=== PATIENT | female | born 1995 | race Caucasian/White ===

== ENCOUNTER 2018-09-30 21:41 | Emergency (ER) ==
[2018-09-30 21:59] VITALS: BP 111/70; TEMP 99.8; BMI 24.9
[2018-09-30] MEDS ORDERED: DILAUDID 1 MG/ML SYRINGE IM STA (22:41)
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
== END 2018-10-01 00:16 | disposition home or self-care (01) ==
LOC: ED 21:41
DX: S00.83XA Contusion of other part of head, initial encounter (principal); S49.92XA Unspecified injury of left shoulder and upper arm, initial encounter; Y04.2XXA Assault by strike against or bumped into by another person, initial encounter
CPT/HCPCS: 96372; 99283

== ENCOUNTER 2019-03-24 16:57 | Outpatient (CLI) | END 2019-03-24 16:58 | disposition home or self-care (01) | LOC: RHC-LAB 16:57 → FCC-LAB 16:58 | PROVIDERS: ATTEND Family Medicine | DX: N30.90 Cystitis, unspecified without hematuria (principal) | CPT/HCPCS: 87086 ==

== ENCOUNTER 2019-03-26 10:32 | Outpatient (CLI) ==
--- NOTE | 2019-03-26 11:07 | US ---
EXAM: Bilateral breast ultrasound. History: Bilateral nipple discharge. Technique: Multiple sonographic images through the bilateral breasts were obtained. Color duplex Do ppler was used to interrogate vascular flow. Findings: No masses, cysts or fluid collections identified. Impression: No sonographic abnormalities. Follow-up with ACR/ACS guidelines. BI-RADS 2, benign
== END 2019-03-26 10:33 | disposition home or self-care (01) ==
LOC: RAD 10:32
PROVIDERS: ATTEND Family Medicine
DX: N64.3 Galactorrhea not associated with childbirth (principal)

== ENCOUNTER 2021-02-08 15:41 | Observation (INO) ==
[2021-02-08 15:59] VITALS: BMI 25.7
--- NOTE | 2021-02-08 16:03 | ED.PDOC ---
General ED Provider: Dr. BRAXTON ABREU Chief Complaint: Bite Stated Complaint: Redness and burning -Lt arm(biceps region) noted to distinct bite velasquez central in area of erythrema. Lt posterior thigh to posterior knee( Popliteal ) Region. Suspected insect or spider bite. Did not feel initial incident but noticed the area once up this AM. Feel fatigued and had severe burning sensation to Lt arm and lt lower extremity Time Seen by Provider: 02/08/21 15:59 Mode of Arrival: Walk-In Information Source: Patient Primary Care Provider: MAEVE MARIE MD Nursing and Triage Documentation Reviewed and Agree: Yes Does patient meet sepsis criteria?: No System Inflammatory Response Syndrome: Not Applicable Sepsis Protocol: For patient's 13 years and over: Temp is 96.8 and below OR 101 and greater Pulse >90 BPM Resp >20/minute Acutely Altered Mental Status Are patient's symptoms suggestive of a new infection, such as: -Pneumonia -Skin, Soft Tissue -Endocarditis -UTI -Bone, Joint Infection -Implantable Device -Acute Abdominal Infection -Wound Infection -Meningitis -Blood Stream Catheter Infection -Unknown Skin Complaint Exam Skin Rash/Itching Complaint/Exam Onset/Duration: Today Symptoms Are: Worse Initial Severity: Mild Current Severity: Severe Location: Lt arm, LT posterior thigh spreading to knee Potential Exposures: Reports Unknown Prior Treatment: 0 Aggravating: Reports None Alleviating: Reports None Associated Signs and Symptoms: Denies Difficulty breathing, Fever and Chills Skin Findings: Present Petechiae (Erythema) and Lesions (Lt arm(central 2 punctate bite velasquez) Differential Diagnoses: Allergic Reaction and Other (Cellulitis, Brown recluse spider bite) Review of Systems Review Of Systems Constitutional: Reports No symptoms Eyes: Reports No symptoms Ears, Nose, Mouth, Throat: Reports No symptoms Respiratory: Reports No symptoms Cardiac: Reports No symptoms GI: Reports No symptoms : Reports No symptoms Musculoskeletal: Reports No symptoms Skin: Reports No symptoms, Change in color and Lesions Neurological: Reports No symptoms Endocrine: Reports No symptoms Hematologic/Lymphatic: Reports No symptoms All Other Systems: Reviewed and Negative [facility] Medical History Anxiety Bipolar affective disorder Depression Migraine Personal history of self-harm Social History Smoking and tobacco status: Never smoker Second hand smoke exposure: No Alcohol intake: never Substance use type: does not use Lady/restorationism: ORTHODOXY Special lady needs: No Agree to transfusion: Yes Adopted: Yes Household members: spouse and children Housing: house Marital status: M Lives independently: No Number of children: 3 Highest education level completed: high school graduate service: No Current occupational status: employed Pets and animals: Yes Sexually active: Yes Do you think of yourself as: straight/heterosexual Current gender identity: female Seatbelt use: always Helmet use: No Water heater temperature set < 120 degrees: Yes Working smoke detector in home: Yes Fire extinguisher in home: Yes Carbon monoxide detector in home: Yes Firearms in home: No Female Reproductive History Menstrual Hx Hysterectomy: No Hx Tubal Ligation: No Physical Exam Physical Exam Appearance: Reports Well-appearing Ill-appearing: Mild Pain Distress: Mild Eyes: Reports ARSLAN, EOMI and Conjunctiva clear ENT: Reports Ears normal, Nose normal and Oropharynx normal Neck: Supple Respiratory: Reports Airway patent, Breath sounds clear, Breath sounds equal and Respirations nonlabored Cardiovascular: Reports RRR, Pulses normal, No rub and No murmur GI/: Reports Soft, Nontender, No masses, Bowel sounds normal and No Organomegaly Musculoskeletal: Reports Normal strength, ROM intact, No edema and No calf tenderness Skin: Reports Warm, Dry, Normal color and Other (Findings as described above) Neurological: Reports Sensation intact, Motor intact, Reflexes intact, Cranial nerves intact, Alert and Oriented Psychiatric: Reports Affect appropriate and Mood appropriate Physician Notification Case Discussed Physician Notified: Dr Marie - will come by and see patient Time of Notification: 16:15 Critical Care Note Critical Care Note Total Critical Care Time (mins): 30 Course Course Hematology/Chemistry: 02/08/21 16:20 02/08/21 16:20 Orders, Labs, Meds: Lab Review 02/08/21 02/08/21 02/08/21 16:20 16:20 16:20 WBC 8.67 RBC 4.66 Hgb 12.7 Hct 37.5 MCV 80.5 L MCH 27.3 MCHC 33.9 RDW Coeff of Toi 13.6 Plt Count 340 Immature Gran % (Auto) 0.3 Neut % (Auto) 72.0 Lymph % (Auto) 22.7 Cuming % (Auto) 4.0 Eos % (Auto) 0.9 Baso % (Auto) 0.1 Neut # (Auto) 6.2 Lymph # (Auto) 2.0 Cuming # (Auto) 0.4 Eos # (Auto) 0.1 Baso # (Auto) 0.0 Immature Gran # (Auto) 0.0 ESR PT INR APTT Sodium 136.6 Potassium 3.72 Chloride 101.2 Carbon Dioxide 27.5 Anion Gap 11.62 BUN 9.6 Creatinine 0.54 L Estimated GFR (MDRD) 135.00 BUN/Creatinine Ratio 17.77 Glucose 113.3 H Lactic Acid Calcium 8.94 Total Bilirubin 0.69 AST 83.1 H ALT 51.8 H Alkaline Phosphatase 87.9 Total Creatine Kinase 51.4 Total Protein 7.57 Albumin 4.31 Globulin 3.26 Albumin/Globulin Ratio 1.32 Procalcitonin Serum , Qual Negative D-Dimer Urine Color Urine Clarity Urine pH Ur Specific [place] Urine Protein Urine Glucose (UA) Urine Ketones Urine Blood Urine Nitrite Urine Bilirubin Urine Urobilinogen Ur Leukocyte Esterase Urine Microscopic RBC Urine Microscopic WBC Ur Squamous Epith Cells Ur Transition Epith Cell Urine Bacteria Adenovirus (PCR) B. pertussis DNA (PCR) B.parapertussis DNA PCR C. pneumoniae DNA (PCR) Coronavirus OC43 (PCR) Coronavirus HKU1 (PCR) Coronavirus 229E (PCR) Coronavirus NL63 (PCR) Human Metapneumovir PCR Influenza Type A (PCR) Influenza B (RT-PCR) M. pneumoniae (PCR) Parainfluenza 1 (PCR) Parainfluenza 2 (PCR) Parainfluenza 3 (PCR) Parainfluenza 4 (PCR) RSV (PCR) Entero/Rhino (PCR) SARS-CoV-2 (PCR) 02/08/21 02/08/21 02/08/21 16:20 16:20 16:20 WBC RBC Hgb Hct MCV MCH MCHC RDW Coeff of Toi Plt Count Immature Gran % (Auto) Neut % (Auto) Lymph % (Auto) Cuming % (Auto) Eos % (Auto) Baso % (Auto) Neut # (Auto) Lymph # (Auto) Cuming # (Auto) Eos # (Auto) Baso # (Auto) Immature Gran # (Auto) ESR PT 10.5 INR 0.99 APTT 28.6 Sodium Potassium Chloride Carbon Dioxide Anion Gap BUN Creatinine Estimated GFR (MDRD) BUN/Creatinine Ratio Glucose Lactic Acid Calcium Total Bilirubin AST ALT Alkaline Phosphatase Total Creatine Kinase Total Protein Albumin Globulin Albumin/Globulin Ratio Procalcitonin < 0.05 Serum , Qual D-Dimer 186.42 Urine Color Urine Clarity Urine pH Ur Specific [place] Urine Protein Urine Glucose (UA) Urine Ketones Urine Blood Urine Nitrite Urine Bilirubin Urine Urobilinogen Ur Leukocyte Esterase Urine Microscopic RBC Urine Microscopic WBC Ur Squamous Epith Cells Ur Transition Epith Cell Urine Bacteria Adenovirus (PCR) B. pertussis DNA (PCR) B.parapertussis DNA PCR C. pneumoniae DNA (PCR) Coronavirus OC43 (PCR) Coronavirus HKU1 (PCR) Coronavirus 229E (PCR) Coronavirus NL63 (PCR) Human Metapneumovir PCR Influenza Type A (PCR) Influenza B (RT-PCR) M. pneumoniae (PCR) Parainfluenza 1 (PCR) Parainfluenza 2 (PCR) Parainfluenza 3 (PCR) Parainfluenza 4 (PCR) RSV (PCR) Entero/Rhino (PCR) SARS-CoV-2 (PCR) 02/08/21 02/08/21 02/08/21 16:20 17:20 17:40 WBC RBC Hgb Hct MCV MCH MCHC RDW Coeff of Toi Plt Count Immature Gran % (Auto) Neut % (Auto) Lymph % (Auto) Cuming % (Auto) Eos % (Auto) Baso % (Auto) Neut # (Auto) Lymph # (Auto) Cuming # (Auto) Eos # (Auto) Baso # (Auto) Immature Gran # (Auto) ESR 13 PT INR APTT Sodium Potassium Chloride Carbon Dioxide Anion Gap BUN Creatinine Estimated GFR (MDRD) BUN/Creatinine Ratio Glucose Lactic Acid Calcium Total Bilirubin AST ALT Alkaline Phosphatase Total Creatine Kinase Total Protein Albumin Globulin Albumin/Globulin Ratio Procalcitonin Serum , Qual D-Dimer Urine Color Yellow Urine Clarity Slightly Urine pH 7.0 Ur Specific [place] 1.020 Urine Protein Negative Urine Glucose (UA) Negative Urine Ketones Negative Urine Blood Trace-intact H Urine Nitrite Negative Urine Bilirubin Negative Urine Urobilinogen 0.2 Ur Leukocyte Esterase Trace H Urine Microscopic RBC 5-10 Urine Microscopic WBC 5-10 Ur Squamous Epith Cells 10-20 Ur Transition Epith Cell 0-2 Urine Bacteria 1+ Adenovirus (PCR) Not detected B. pertussis DNA (PCR) Not detected B.parapertussis DNA PCR Not detected C. pneumoniae DNA (PCR) Not detected Coronavirus OC43 (PCR) Not detected Coronavirus HKU1 (PCR) Not detected Coronavirus 229E (PCR) Not detected Coronavirus NL63 (PCR) Not detected Human Metapneumovir PCR Not detected Influenza Type A (PCR) Not detected Influenza B (RT-PCR) Not detected M. pneumoniae (PCR) Not detected Parainfluenza 1 (PCR) Not detected Parainfluenza 2 (PCR) Not detected Parainfluenza 3 (PCR) Not detected Parainfluenza 4 (PCR) Not detected RSV (PCR) Not detected Entero/Rhino (PCR) Not detected SARS-CoV-2 (PCR) Not detected 02/08/21 18:17 WBC RBC Hgb Hct MCV MCH MCHC RDW Coeff of Toi Plt Count Immature Gran % (Auto) Neut % (Auto) Lymph % (Auto) [place] % (Auto) Eos % (Auto) Baso % (Auto) Neut # (Auto) Lymph # (Auto) [place] # (Auto) Eos # (Auto) Baso # (Auto) Immature Gran # (Auto) ESR PT INR APTT Sodium Potassium Chloride Carbon Dioxide Anion Gap BUN Creatinine Estimated GFR (MDRD) BUN/Creatinine Ratio Glucose Lactic Acid 1.24 Calcium Total Bilirubin AST ALT Alkaline Phosphatase Total Creatine Kinase Total Protein Albumin Globulin Albumin/Globulin Ratio Procalcitonin Serum , Qual D-Dimer Urine Color Urine Clarity Urine pH Ur Specific [place] Urine Protein Urine Glucose (UA) Urine Ketones Urine Blood Urine Nitrite Urine Bilirubin Urine Urobilinogen Ur Leukocyte Esterase Urine Microscopic RBC Urine Microscopic WBC Ur Squamous Epith Cells Ur Transition Epith Cell Urine Bacteria Adenovirus (PCR) B. pertussis DNA (PCR) B.parapertussis DNA PCR C. pneumoniae DNA (PCR) Coronavirus OC43 (PCR) Coronavirus HKU1 (PCR) Coronavirus 229E (PCR) Coronavirus NL63 (PCR) Human Metapneumovir PCR Influenza Type A (PCR) Influenza B (RT-PCR) M. pneumoniae (PCR) Parainfluenza 1 (PCR) Parainfluenza 2 (PCR) Parainfluenza 3 (PCR) Parainfluenza 4 (PCR) RSV (PCR) Entero/Rhino (PCR) SARS-CoV-2 (PCR) Orders Category Date Time Status ADMIT OBSERVATION [PLACE PATIENT OBSERVATION] .TO ADMISSION 02/08/21 17:25 Active MEDSURG (NON-MONITORED BED) EKG-(ED ONLY) Stat CARDIO 02/08/21 17:39 Completed ACTIVITY .Up With Assistance CARE 02/08/21 17:31 Active INTAKE & OUTPUT Q8HR CARE 02/08/21 17:32 Active VITAL SIGNS Q4HR CARE 02/08/21 17:32 Active REGULAR DIET DIETARY 02/08/21 Dinner Ordered IV [ED IV/MEDIPORT/POWERPORT] .ONCE EMERGENCY 02/08/21 16:03 Active ANTI-NEUTROPHIL CYTOPLASMIC AB Stat LAB 02/08/21 16:20 Received BLOOD CULTURE (ED ONLY) Stat LAB 02/08/21 17:41 Received C-REACTIVE PROTEIN Stat LAB 02/08/21 16:20 Received CBC W/ AUTO DIFF DAILY@0600 LAB 02/09/21 06:00 Ordered CBC W/ AUTO DIFF DAILY@0600 LAB 02/10/21 06:00 Ordered CBC W/ AUTO DIFF Stat LAB 02/08/21 16:20 Completed CMP [COMPREHENSIVE METABOLIC PANEL] Stat LAB 02/08/21 16:20 Completed COMPREHENSIVE METABOLIC PANEL DAILY@0600 LAB 02/09/21 06:00 Ordered COMPREHENSIVE METABOLIC PANEL DAILY@0600 LAB 02/10/21 06:00 Ordered CPK [CREATINE KINASE] Stat LAB 02/08/21 16:20 Completed CREATINE KINASE Stat LAB 02/09/21 06:36 Ordered D-DIMER Stat LAB 02/08/21 16:20 Completed ESR Stat LAB 02/08/21 16:20 Completed HCG QUALITATIVE [SERUM ] Stat LAB 02/08/21 16:20 Completed LACTIC ACID Stat LAB 02/08/21 18:17 Completed PARTIAL THROMBOPLASTIN TIME Stat LAB 02/08/21 16:20 Completed PROCALCITONIN Stat LAB 02/08/21 16:20 Completed PT WITH INR DAILY@0600 LAB 02/09/21 06:00 Ordered PT WITH INR DAILY@0600 LAB 02/10/21 06:00 Ordered PT WITH INR Stat LAB 02/08/21 16:20 Completed RESPIRATORY PANEL 2.1 (PCR) Stat LAB 02/08/21 17:20 Completed UA [URINALYSIS C & S IF INDICATED] Stat LAB 02/08/21 17:40 Completed URINE CULTURE Stat LAB 02/08/21 17:40 Received 0.9 % Sodium Chloride [Saline Flush] MEDS 02/08/21 16:03 Active 1 syr IVF PRN PRN Acetaminophen [Tylenol] MEDS 02/08/21 17:36 Active 650 mg PO Q4-6H PRN Ceftriaxone 1 gm Vial [Rocephin 1 gm Vial] MEDS 02/09/21 06:00 Active 1 gm IV Q24H Ceftriaxone/D5w 1 gm Premix [Rocephin 1 gm/50 ml D5w] MEDS 02/08/21 17:29 Discontinued 1 gm in 50 ml IV ONCE Cetirizine HCl [Zyrtec] MEDS 02/08/21 16:10 Discontinued 10 mg PO ONCE STA Diphenhydramine Inj [Benadryl] MEDS 02/08/21 16:06 Discontinued 50 mg IVP ONCE ONE Enoxaparin Sodium [Lovenox] MEDS 02/08/21 17:31 Discontinued 60 mg SUBCUT ONCE ONE Ketorolac Tromethamine [Toradol] MEDS 02/08/21 16:47 Discontinued 30 mg IVP ONCE STA Lidocaine HCl/Pf [Lidocaine HCl 1% Sdv] MEDS 02/08/21 18:37 Discontinued 2.1 ml IM ONCE STA Methylprednisolone Sod Succ/Pf [Solu-Medrol 125 mg] MEDS 02/08/21 16:08 Discontinued 125 mg IVP ONCE STA Methylprednisolone Sod Succ/Pf [Solu-Medrol 125 mg] MEDS 02/08/21 21:00 Active 125 mg IVP Q8HR Morphine Sulfate [Morphine 2 mg/ml Syringe] MEDS 02/08/21 18:36 Active 2 mg IVP Q6H PRN Ondansetron HCl/Pf [Zofran 4 mg/2 ml] MEDS 02/08/21 17:31 Active 4 mg IVP Q6H PRN Vancomycin 1 gm MEDS 02/08/21 17:28 Discontinued 0.9 % Sodium Chloride [Sodium Chloride] 250 ml IV ONCE Vancomycin 1 gm MEDS 02/09/21 06:00 Active 0.9 % Sodium Chloride [Sodium Chloride] 250 ml IV Q12H RESUSCITATION STATUS Routine OTHERS 02/08/21 17:31 Ordered Medications Generic Name Dose Route Start Last Admin Trade Name Freq PRN Reason Stop Dose Admin Acetaminophen 650 mg 02/08/21 17:36 Acetaminophen 325 Mg Tablet PO Q4-6H PRN head ache, temp elevation Ceftriaxone Sodium 1 gm 02/09/21 06:00 Ceftriaxone 1 Gm Vial 1 Gm Vial IV 02/12/21 05:59 Q24H ALYX Vancomycin HCl 1 gm/ Sodium 250 mls @ 250 mls/hr 02/09/21 06:00 Chloride IV 02/12/21 05:59 Q12H ALYX Methylprednisolone Sodium Succinate 125 mg 02/08/21 21:00 Methylprednisolone Sod Succ/Pf 125 Mg/2 Ml Vial IVP Q8HR ALYX Morphine Sulfate 2 mg 02/08/21 18:36 Morphine Sulfate 2 Mg/Ml Syringe IVP Q6H PRN pain Ondansetron HCl 4 mg 02/08/21 17:31 Ondansetron Hcl/Pf 4 Mg/2 Ml Sdv IVP Q6H PRN Nausea / Vomiting Sodium Chloride 1 syr 02/08/21 16:03 02/08/21 16:20 0.9% Sodium Chloride 10 Ml Disp.Syrin IVF 1 syr PRN PRN Administration To flush IV Discontinued Medications Generic Name Dose Route Start Last Admin Trade Name Freq PRN Reason Stop Dose Admin Cetirizine HCl 10 mg 02/08/21 16:10 02/08/21 16:19 Cetirizine Hcl 5 Mg/5 Ml Ud Cup PO 02/08/21 16:11 10 mg ONCE STA Administration Diphenhydramine HCl 50 mg 02/08/21 16:06 02/08/21 16:20 Diphenhydramine Inj 50 Mg/Ml Vial IVP 02/08/21 16:07 50 mg ONCE ONE Administration Enoxaparin Sodium 60 mg 02/08/21 17:31 02/08/21 17:50 Enoxaparin Sodium 60 Mg/0.6 Ml Syr SUBCUT 02/08/21 17:32 60 mg ONCE ONE Administration Vancomycin HCl 1 gm/ Sodium 250 mls @ 250 mls/hr 02/08/21 17:28 02/08/21 18:22 Chloride IV 02/08/21 18:27 250 mls/hr ONCE ONE Administration CEFTRIAXONE/D5W 1 GM PREMIX 1 gm in 50 mls @ 75 mls/hr 02/08/21 17:29 02/08/21 17:42 Rocephin 1 Gm/50 Ml D5w IV 02/08/21 18:08 75 mls/hr ONCE STA Administration Ketorolac Tromethamine 30 mg 02/08/21 16:47 02/08/21 16:51 Ketorolac Tromethamine 30 Mg/Ml Vial IVP 02/08/21 16:48 30 mg ONCE STA Administration Lidocaine HCl 2.1 ml 02/08/21 18:37 Lidocaine Hcl/Pf 1% 5 Ml Vial IM 02/08/21 18:38 ONCE STA Methylprednisolone Sodium Succinate 125 mg 02/08/21 16:08 02/08/21 16:20 Methylprednisolone Sod Succ/Pf 125 Mg/2 Ml Vial IVP 02/08/21 16:09 125 mg ONCE STA Administration Vital Signs: Temp Pulse Resp BP Pulse Ox 02/08/21 18:28 100 H 18 100 02/08/21 18:18 98.7 F 118 H 20 121/82 100 02/08/21 17:15 98.7 F 118 H 20 121/82 100 02/08/21 16:55 107 H 20 02/08/21 15:45 97.8 F 94 H 16 117/83 98 Discharge Plan Discharge Patient Disposition: PLACED OBSERVATION Discharge Problem: Cellulitis, Brown recluse spider bite ED Provider: BRAXTON ABREU Condition: Stable Physician Progress Note: [address] Marie here see patient. Discussed further treatment including admission for observation and treatment including LMWH , IV antibiotics and US in the AM of LT LE
[2021-02-08] MEDS ORDERED: BENADRYL IVP ONE (16:06)
[2021-02-08] MEDS ORDERED: SOLU-MEDROL 125 MG IVP STA (16:08)
[2021-02-08] MEDS ORDERED: ZYRTEC PO STA (16:10)
[2021-02-08 16:26] LABS: BASOPHILS % (AUTO) 0.1 % (0.0-3.0); EOSINOPHILS # (AUTO) 0.1 K/ul (0.0-0.7); EOSINOPHILS % (AUTO) 0.9 % (0.0-7.0); HEMATOCRIT 37.5 % (37.0-47.0); HEMOGLOBIN 12.7 g/dl (12.0-16.0); IMMATURE GRANULOCYTE % (AUTO) 0.3 % (0.0-5.0); LYMPHOCYTES % (AUTO) 22.7 (10.0-50.0); MEAN CORPUSCULAR HEMOGLOBIN 27.3 pg (27.0-31.0); MEAN CORPUSCULAR HGB CONC 33.9 (31.8-35.4); MEAN CORPUSCULAR VOLUME 80.5 fl (81.0-99.0); MONOCYTES # (AUTO) 0.4 K/uL (0.4-2.0); NEUTROPHILS # (AUTO) 6.2 K/ul (2.0-6.9); PLATELET COUNT 340 10^3/uL (140-440); RDW COEFFICIENT OF VARIATION 13.6 % (11.6-14.8); RED BLOOD COUNT 4.66 10^6/ul (4.20-5.40); WHITE BLOOD COUNT 8.67 K/ul (4.6-10.2)
[2021-02-08 16:37] LABS: ALANINE AMINOTRANSFERASE 51.8 U/L (0-35); ALBUMIN 4.31 g/dL (3.5-5.0); ALKALINE PHOSPHATASE 87.9 U/L (38-126); ASPARTATE AMINO TRANSFERASE 83.1 U/L (14-36); BILIRUBIN,TOTAL 0.69 mg/dL (0.2-1.3); BLOOD UREA NITROGEN 9.6 mg/dL (7-17); CALCIUM 8.94 mg/dL (8.4-10.2); CARBON DIOXIDE 27.5 mmol/L (22-30.0); CHLORIDE 101.2 mmol/L (98-107); CREATINE KINASE 51.4 U/L (30-135); CREATININE 0.54 mg/dL (0.60-1.30); GLUCOSE 113.3 mg/dL (74-106); POTASSIUM 3.72 mmol/L (3.5-5.1); SODIUM 136.6 mmol/L (134.5-145); TOTAL PROTEIN 7.57 g/dL (6.3-8.2)
[2021-02-08 16:41] LABS: SERUM PREGNANCY NEGATIVE (NEGATIVE)
[2021-02-08] MEDS ORDERED: TORADOL IVP STA (16:47)
[2021-02-08 17:28] LABS: BORDETELLA PARAPERTUSSIS (PCR) NOT DETECTED (NOT DETECT); BORDETELLA PERTUSSIS (PCR) NOT DETECTED (NOT DETECT); CHLAMYDIA PNEUMONIAE (PCR) NOT DETECTED (NOT DETECT); CORONAVIRUS 229E (PCR) NOT DETECTED (NOT DETECT); CORONAVIRUS HKU1 (PCR) NOT DETECTED (NOT DETECT); CORONAVIRUS NL63 (PCR) NOT DETECTED (NOT DETECT); CORONAVIRUS OC43 (PCR) NOT DETECTED (NOT DETECT); HUMAN METAPNEUMOVIRUS (PCR) NOT DETECTED (NOT DETECT); HUMAN RHINOVIRUS/ENTEROV (PCR) NOT DETECTED (NOT DETECT); INFLUENZA B (PCR) NOT DETECTED (NOT DETECT); MYCOPLASMA PNEUMONIAE (PCR) NOT DETECTED (NOT DETECT); PARAINFLUENZA VIRUS 1 (PCR) NOT DETECTED (NOT DETECT); PARAINFLUENZA VIRUS 2 (PCR) NOT DETECTED (NOT DETECT); PARAINFLUENZA VIRUS 3 (PCR) NOT DETECTED (NOT DETECT); PARAINFLUENZA VIRUS 4 (PCR) NOT DETECTED (NOT DETECT); RESPIRATORY SYNCYTIAL V (PCR) NOT DETECTED (NOT DETECT); SARS_COV_2 (PCR) NOT DETECTED (NOT DETECT)
[2021-02-08] MEDS ORDERED: VANCOMYCIN 1 GM in SODIUM CHLORIDE 250 ML IV ONE (17:28)
[2021-02-08] MEDS ORDERED: ROCEPHIN 1 GM/50 ML D5W 1 GM/50 ML BAG IV STA (17:29)
[2021-02-08] MEDS ORDERED: ZOFRAN 4 MG/2 ML IVP PRN (17:31)
[2021-02-08] MEDS ORDERED: LOVENOX SUBCUT ONE (17:31)
[2021-02-08] MEDS ORDERED: TYLENOL PO PRN (17:36)
[2021-02-08 17:37] LABS: PARTIAL THROMBOPLASTIN TIME 28.6 SEC (23.9-40.0); PROTHROMBIN TIME 10.5 SEC (9.3-11.0)
[2021-02-08 17:47] LABS: BILIRUBIN,URINE Negative (NEGATIVE); CLARITY,URINE Slightly (CLEAR); COLOR,URINE Yellow (YELLOW); GLUCOSE, URINE (UA) Negative (NEGATIVE); KETONES,URINE Negative (NEGATIVE); LEUKOCYTE ESTERASE ,URINE Trace (NEGATIVE); NITRITE,URINE Negative (NEGATIVE); PROTEIN,URINE Negative (NEGATIVE); URINE, BLOOD Trace-intact (NEGATIVE); UROBILINOGEN,URINE 0.2 (0.2)
[2021-02-08 17:54] LABS: BACTERIA,URINE 1+ (NOT PRESENT); TRANSITIONAL EPI CELLS,URINE 0-2 (NOT PRESENT)
[2021-02-08 18:15] LABS: ADENOVIRUS (PCR) NOT DETECTED (NOT DETECT)
--- NOTE | 2021-02-08 18:18 | PCM ---
Chief Complaint Chief Complaint: I got bit by a spider. History of Present Illness History of Present Illness: 25 yo Female presented to ED today around 1559 via walk-in. She noted burning and redness to the left distal tricep and olecranon. She has a region of erythema listed as bicep region (actually tricep region) with distinct bite velasquez central within the area of erythema. No known trauma, no known burn, no known injury, does not remember anything biting her or cutting her. She also had region alonng left posterior distal thigh posterior to knee within popliteal region. Suspected insect bite or spider bite. She did not feel the initial incident but noticed area once she was awake this am. She is fatigued, felt severe burning sensation to the left arm and to the lower extremity. BP was 117/83 rr 16, pulse 94, temp 97.8, pulse ox 98 on initial eval. 1655 hr 107 and rr 20. 17:15 temp 98.7, pulse 118, rr 20, bp 121/82, pulse ox 100. NO drug use, no history of ETOH use/abuse. , confucianist, not a smoker, no tobacco use. She has 3 children, employed. Dr. Jacobs called me at 1615 and I noted that i would come to see the patient. I went to the ED and noted large area of erythema w/ ?abrasion vs burn along the posterior arm tricep region and significant erythema with surrounding ?petechiae. Hot to touch, painful, erythematous. Patient has not had any prolonged bed rest, no recent surgeries, no long car rides, no increased sedentary status. She is not on contraceptives. Only rx now is fiorcet for CHIU and seroquel for mood at 100mg daily. labs completed and showed CBC with 8.67 WBC, hgb 12.7, plt 340. MCV 80.5 and a little low but no annemia and this is okay to be monitored. Sodium 136.6, K+ 3.72, cl 101.2. creatinine 0.54. Glucose 113. AST 83.1, alt 51.8. Urinalysis pH 7.0, SG 1.020, negative prot, negative gluc, neg ket, trace inntact urine blood, trace LE. Culture ordered/pending. Serum was negative. PT 10.5. INR 0.99. APTT 28.6. I agreed to admit to observation overnight. I would like to start vancomycin 15 mg/kg/dose every 12 hours and rocephin 1 gram daily. We will check Lactic acid, procalc, blood cultures. We will check vitals routine, cbc/cmp q am 6 am. Ddimer was requested by me as well. The Ddimer was negative as of order. We will check US in the am. We will use vancomycin and rocephin overnight. lovenox 1mg/kg overnight and again inn am. We can use IV steroids (solu-medrol ordered, will just give decadron 10mg once). Toradol 30mg IV q 8 hours, morphine 2 mg q 6 hours IV. She has no known spider bite, no visualization of spider. We will work to keep wound clean , apply cool compresses (not ice) to the regions without freezing tissues, maintain area in elevated position. We will check last known tetanus and update her status as well. I will eval for vasculitis, DVT, Cellulitis/erysipilas. Lesion on lefft tricep and left popliteal fossa are quite inflamed. Reviewed typically swelling (except face/feet) is not typical of recluse bites, Lesion behind left knee is large, which is also uncommon, lesion behind left arm is sunken which is consistent but leg is not. SO far CK is negative/normal suggesting no rhabdomyolysis. Patient was seen personally in main ED 1 for admission today. LMP 2 weeks ago. She has 3 lesions identified today. I have searched skin with nursing present and found no ticks. she reports no ticks, no spiders, no davis, no known cause. BIOFIRE RETURNED 1719 negative. Labs as of 1934: lactic acid 1.24. ESR 13. Procalcitonin <0.05. REVIEW OF SYMPTOMS: (Positives bolded) General: weight loss, fever, chills, night sweats, fatigue, appetite loss HEENT: blurry vision, eye pain, eye discharge, dry eyes, decreased vision, sore throat tinnitus, bloody nose, hearin gloss, sinus pain/pressure, ear pain/pressure. Respiratory: shortness of breath, cough, hemoptysis, wheezing, pleurisy, Cardiovascular: chest pain, PND, palpitation, edema, orthopnea, syncope, swelling of extremities Gastro: Nausea, vomiting, diarrhea, hematemesis, abdominal pain, constipation Genito: hematuria, dysuria, glycosuria, hesitancy, frequency, incontinence [place]: Arthralgia, myalgia, muscle weakness, joint swelling, NSAID use Skin: rash, pruritis, sores, nail changes, skin thickening, change in wart/mole, itching, new lesions, pruritus, nail changes Neuro: Migraine, numbness, ataxia, tremor, vertigo, weakness, memory loss, Irritability, dizziness Endocrine: excessive thirst, polyuria, cold intolerance, heat intolerance, goiter Psychiatric: depression, anxiety, anti-depressants, alcohol abuse, drug abuse, insomnia, change in sleep pattern and mood changes Heme/lymph: easy bruising, bleeding gums, blood clots, swollen glands, lymphedema, Allergic/immune: allergic rhinitis, hay fever, asthma, hives Objective: Vital Signs - 24 hr 02/08/21 15:45 02/08/21 16:55 02/08/21 17:15 Temperature 97.8 F 98.7 F Pulse Rate 94 H 107 H 118 H Respiratory Rate 16 20 20 Blood Pressure 117/83 121/82 O2 Sat by Pulse Oximetry 98 100 02/08/21 18:18 02/08/21 18:28 Temperature 98.7 F Pulse Rate 118 H 100 H Respiratory Rate 20 18 Blood Pressure 121/82 O2 Sat by Pulse Oximetry 100 100 OBJECTIVE: Constitutional: Appearance- Pain response, teeth chattering. No respiratory distress, she is consistent with stated age. Orientation- Oriented x 3, alert Posture-Not doubled over. Lying supine, answering questions appropriately. Posture- Normal Build and Nutrition-Well developed and well nourished. General- Patient is pleasant and cooperative with the interview and exam. She appears to be in pain in left tricep and along the left popliteal fossa. Integumentary: lesions posterior tricep 5mm, 5cm, 6cm tall. Raised central duskiness. Lesion Left medial thigh mid thigh 2cm central clearing with surrounding 5cm erythema. Lesion Posterior popliteal Fossa: 22 cm long by 10 cm wide. Erythematous with petechial region surrounding this. LN: none palpable in groin, axilla. Full skin evaluation completed, I did not find/appreciate ticks, no lesions right leg, no lesions abdomen/back, within underwear/bra, no other lesions noted. Mild ?flushing post steroid and sweat along upper lip she noted she felt hot. Head/Neck: Head- normocephalic and atraumatic. Neck- without visible/palpable lumps or pulsations. Palpation- No bony tenderness about head/neck along frontal, occiptial, temporal, parietal, mastoid, jawline, zygoma, orbit or any other location. NO temporal artery tenderness. No TMJ tenderness. Normal cervical ROM. Neck Supple. Thyroid-No thyromegaly, no nodules Eye: Bilaterally PERRLA, EOMI. No discharge. Upper and lower eyelids are normal. Sclera/conjunctiva normal without discharge. Cornea is normal and clear. Lens is normal. Eyeball appears normal. No ciliary flushing, no conjunctival injection. ENMT: Pinna- normal without tenderness or erythema. External auditory canal Left- normal without erythema or discharge, no excessive cerumen. External auditory canal Right-normal without erythema or discharge, no excessive cerumen. TM left- Kumar/pearly, normal light reflex and anatomy TM Right- Kumar/pearly, normal light reflex and anatomy Hearing Assessment-normal to conversational speech at 2-5 feet. Nose and sinus-No sinus tenderness along frontal/maxillary region. External appearance normal and midline. Nares- bilateral quiet airflow, no discharge. Nasal mucosa- No bleeding noted and no ulcerations observed. [place], moist. Turbinates non boggy. Lips- normal color, moist without cracks/lesions Oral Cavity/Palate- hard/soft palate intact without lesions, oral mucosa pink and moist. Dentition assessed and discussed appropriate oral care. Tongue normal midline. Oropharynx- no pharyngeal erythema, Uvula midline. No post nasal drip. No exudate. Salivary glands- Non tender to palpation CHEST/LUNG: Inspection- symmetric chest wall no pectus deformity. Normal effort, no distress, no use of accessory muscles. Palpation- nontender sternum, ribline. No abnormal pulsations. Auscultation- Breath sounds normal throughout all lung alarcon. Normal tracheal sounds, Normal bronchial sounds overlying sternum, Bronchovessicular sounds normal between scapulae posteriorly, Normal vessicular breath sounds heard throughout periphery. Lungs are clear today. Adventitious sounds- No wheezes, rales, rhonchi. CARDIOVASCULAR: Carotid artery- normal, no bruits or abnormal pulsations. Jugular vein- no pulsations. Palpation/Percussion- Normal PMI, no palpable thrill Auscultation- Regular rate and rhythm. No murmur noted in sitting, supine positions. Extremities- no digital clubbing, cyanosis, edema, increased warmth. ABDOMEN: Inspection- normal and no visible pulsations. Normal contour. Auscultation- Bowel sounds normal, no abdominal bruits. Palpation/Percussion- soft, non-tender, no rebound tenderness, no rigidity (guarding), no jar tenderness, no masses. Liver-no hepatomegaly, Spleen no splenomegaly, Hernias- none. Rectal not examined. Peripheral Vascular: Upper extremity Left- Normal temperature with pink nailbeds and no ulcerations. Upper extremity Right- Normal temperature with pink nailbeds and no ulcerations. Lower extremity- Normal temperature with pink nailbeds and no ulcerations. DP pulses 2+ bilaterally. Pedal hair intact. Normal capillary refill. Edema- No edema. Musculoskeletal: Generalized-No generalized swelling or edema of extremities, no digital clubbing or cyanosis, neurovascularly intact all four extremities. Upper extremity- Symmetrical posture. No visible deformity. Normal sensation along medial and lateral upper extremity proximally and distally. NO tenderness overlying shoulder, lateral/medial epicondyle. Sand Mixer 5/5 and strength 5/5 bilateral UE. Elbow palpated, no tenderness overlying olecranon. Normal supination, pronation to active/passive ROM and to resisted rotation. Bicep insertion/tricep insertion appear normal without obvious pathology. Rotator cuff evaluated and intact. Normal wrist ROM bilaterally. Normal hand movement, intrinsic muscles of hands normal. No tenderness to palpation of hands/wrists/elbows. Lower extremity- tender to palpation calf and posterior hamstring on left, tu +, No swelling of calf, She has swelling of poplital fossa, left medial thigh. edema and erythema of surrounding tissue but not diffuse, normal strength and tone. Normal appearing hip ROM bilaterally without pain. Knee ROM reduced due to pain. No tenderness overlying trochanters, no tenderness about patella, quad tendon, patellar tendon. No tenderness at tibial tuberosity. Ankle normal ROM not tender to palpation along medial/lateral malleolus. Normal movement of toes, no tenderness bilateral feet/toes. Normal foot type. Calves symmetrical. Left is tender. Spine/Ribs- No deformities, masses or tenderness, no known fractures, normal strength, Normal ROM. Normal stability No tenderness along C/T/L spine. Normal appearing ROM about spine. Neurological: General- Moves all 4 extremities symmetrically. Symmetrical face and body posture. Cranial nerves- individually evaluated II-XII and intact. PERRLA, Normal EOMI, visual/special senses appear intact, Face is symmetrical and normal sensation/movement, normal tongue, normal strength/posture of neck musculature. Balance- Romberg intact. Reflexes- ntact with DTR 2+ patellar, Achilles, bicep, brachial,tricep. Ankle clonus normal with 2 beats. Strength- 5/5 bilateral UE and LE. Soft touch- intact bilateral UE and LE. Temperature sensation- intact bilateral UE and LE. Neuropsych: Oriented- Person, place, time. (AAOx3), Mood/affect- normal and congruent. Able to articulate well. Speech-Normal speech, normal rate, normal tone, normal use of language, volume and coherence. Thought content- normal with ability to perform basic computations and apply abstract thought/reason. Associations- intact, no SI/HI, no hallucinations, delusions, obsessions. Judgment/insight- Appropriate. Memory-Recall intact, remote and recent memory intact. Knowledge- Age appropriate fund of knowledge, concentration and attention span normal. Lymphatic: Head/Neck- normal size and non tender to palpation. Axillary- Head and neck LN are normal size and non tender to palpation. Femoral and Inguinal- normal size and non tender to palpation. Allergies Allergies Allergy/AdvReac Type Severity Reaction Status Date / Time buspirone AdvReac Intermediate nausea and Verified 02/08/21 16:02 made her feel weird escitalopram [From Lexapro] AdvReac Intermediate shakiness Verified 02/08/21 16:02 and dizziness promethazine HCl AdvReac Unknown Verified 02/08/21 16:02 [From Phenergan] ziprasidone HCl [From Geodon] AdvReac Unknown Verified 02/08/21 16:02 ziprasidone mesylate AdvReac Unknown Verified 02/08/21 16:02 [From Geodon] zolmitriptan [From Zomig] AdvReac Unknown Verified 02/08/21 16:02 sulfa drugs AdvReac Intermediate Unknown Uncoded 02/08/21 16:02 [facility] Medical History Anxiety Bipolar affective disorder Depression Migraine Personal history of self-harm Surgical History (Updated 02/08/21 @ 20:43 by JAE BOOGIE LPN) No history of previous surgery Family History (Updated 02/08/21 @ 20:43 by JAE BOOGIE LPN) Other No known health problems Social History Smoking and tobacco status: Never smoker Second hand smoke exposure: No Alcohol intake: never Substance use type: does not use Lady/episcopal: TENRIISM Special lady needs: No Agree to transfusion: Yes Adopted: Yes Household members: spouse and children Housing: house Marital status: M Lives independently: No Number of children: 3 Highest education level completed: high school graduate service: No Current occupational status: employed Pets and animals: Yes Sexually active: Yes Do you think of yourself as: straight/heterosexual Current gender identity: female Seatbelt use: always Helmet use: No Water heater temperature set < 120 degrees: Yes Working smoke detector in home: Yes Fire extinguisher in home: Yes Carbon monoxide detector in home: Yes Firearms in home: No Medications Medications: Medications Generic Name Dose Route Start Last Admin Trade Name Freq PRN Reason Stop Dose Admin Acetaminophen 650 mg 02/08/21 17:36 Acetaminophen 325 Mg Tablet PO Q4-6H PRN head ache, temp elevation Vancomycin HCl 1 gm/ Sodium 250 mls @ 250 mls/hr 02/08/21 17:28 Chloride IV 02/08/21 18:27 ONCE ONE CEFTRIAXONE/D5W 1 GM PREMIX 1 gm in 50 mls @ 75 mls/hr 02/08/21 17:29 02/08/21 17:42 Rocephin 1 Gm/50 Ml D5w IV 02/08/21 18:08 75 mls/hr ONCE STA Administration Methylprednisolone Sodium Succinate 125 mg 02/08/21 21:00 Methylprednisolone Sod Succ/Pf 125 Mg/2 Ml Vial IVP Q8HR ALYX Ondansetron HCl 4 mg 02/08/21 17:31 Ondansetron Hcl/Pf 4 Mg/2 Ml Sdv IVP Q6H PRN Nausea / Vomiting Sodium Chloride 1 syr 02/08/21 16:03 02/08/21 16:20 0.9% Sodium Chloride 10 Ml Disp.Syrin IVF 1 syr PRN PRN Administration To flush IV Body Composition Height: 5 ft Weight: 132 lb Body Mass Index (BMI): 25.7 Vital Signs Temperature: 98.7 F Pulse Rate: 118 Respiratory Rate: 20 Blood Pressure: 121/82 O2 Sat by Pulse Oximetry: 100 Lab/Tests/Diagnostic Imaging Lab/Tests/Diagnostic Imaging: Orders Category Date Time Status ADMIT OBSERVATION [PLACE PATIENT OBSERVATION] .TO ADMISSION 02/08/21 17:25 Active MEDSURG (NON-MONITORED BED) EKG-(ED ONLY) Stat CARDIO 02/08/21 17:39 Ordered ACTIVITY .Up With Assistance CARE 02/08/21 17:31 Active INTAKE & OUTPUT Q8HR CARE 02/08/21 17:32 Active VITAL SIGNS Q4HR CARE 02/08/21 17:32 Active REGULAR DIET DIETARY 02/08/21 Dinner Ordered IV [ED IV/MEDIPORT/POWERPORT] .ONCE EMERGENCY 02/08/21 16:03 Active BLOOD CULTURE (ED ONLY) Stat LAB 02/08/21 17:41 Received CBC W/ AUTO DIFF DAILY@0600 LAB 02/09/21 06:00 Ordered CBC W/ AUTO DIFF DAILY@0600 LAB 02/10/21 06:00 Ordered CBC W/ AUTO DIFF Stat LAB 02/08/21 16:20 Completed CMP [COMPREHENSIVE METABOLIC PANEL] Stat LAB 02/08/21 16:20 Completed COMPREHENSIVE METABOLIC PANEL DAILY@0600 LAB 02/09/21 06:00 Ordered COMPREHENSIVE METABOLIC PANEL DAILY@0600 LAB 02/10/21 06:00 Ordered CPK [CREATINE KINASE] Stat LAB 02/08/21 16:20 Completed D-DIMER Stat LAB 02/08/21 16:20 Received HCG QUALITATIVE [SERUM ] Stat LAB 02/08/21 16:20 Completed PARTIAL THROMBOPLASTIN TIME Stat LAB 02/08/21 16:20 Completed PT WITH INR DAILY@0600 LAB 02/09/21 06:00 Ordered PT WITH INR DAILY@0600 LAB 02/10/21 06:00 Ordered PT WITH INR Stat LAB 02/08/21 16:20 Completed RESPIRATORY PANEL 2.1 (PCR) Stat LAB 02/08/21 17:20 Received UA [URINALYSIS C & S IF INDICATED] Stat LAB 02/08/21 17:40 Completed URINE CULTURE Stat LAB 02/08/21 17:40 Received 0.9 % Sodium Chloride [Saline Flush] MEDS 02/08/21 16:03 Active 1 syr IVF PRN PRN Acetaminophen [Tylenol] MEDS 02/08/21 17:36 Active 650 mg PO Q4-6H PRN Ceftriaxone/D5w 1 gm Premix [Rocephin 1 gm/50 ml D5w] MEDS 02/08/21 17:29 Active 1 gm in 50 ml IV ONCE Cetirizine HCl [Zyrtec] MEDS 02/08/21 16:10 Discontinued 10 mg PO ONCE STA Diphenhydramine Inj [Benadryl] MEDS 02/08/21 16:06 Discontinued 50 mg IVP ONCE ONE Enoxaparin Sodium [Lovenox] MEDS 02/08/21 17:31 Discontinued 60 mg SUBCUT ONCE ONE Ketorolac Tromethamine [Toradol] MEDS 02/08/21 16:47 Discontinued 30 mg IVP ONCE STA Methylprednisolone Sod Succ/Pf [Solu-Medrol 125 mg] MEDS 02/08/21 16:08 Discontinued 125 mg IVP ONCE STA Methylprednisolone Sod Succ/Pf [Solu-Medrol 125 mg] MEDS 02/08/21 21:00 Active 125 mg IVP Q8HR Ondansetron HCl/Pf [Zofran 4 mg/2 ml] MEDS 02/08/21 17:31 Active 4 mg IVP Q6H PRN Vancomycin 1 gm MEDS 02/08/21 17:28 Active 0.9 % Sodium Chloride [Sodium Chloride] 250 ml IV ONCE RESUSCITATION STATUS Routine OTHERS 02/08/21 17:31 Ordered Medications Generic Name Dose Route Start Last Admin Trade Name Joseq PRN Reason Stop Dose Admin Acetaminophen 650 mg 02/08/21 17:36 Acetaminophen 325 Mg Tablet PO Q4-6H PRN head ache, temp elevation Vancomycin HCl 1 gm/ Sodium 250 mls @ 250 mls/hr 02/08/21 17:28 Chloride IV 02/08/21 18:27 ONCE ONE CEFTRIAXONE/D5W 1 GM PREMIX 1 gm in 50 mls @ 75 mls/hr 02/08/21 17:29 02/08/21 17:42 Rocephin 1 Gm/50 Ml D5w IV 02/08/21 18:08 75 mls/hr ONCE STA Administration Methylprednisolone Sodium Succinate 125 mg 02/08/21 21:00 Methylprednisolone Sod Succ/Pf 125 Mg/2 Ml Vial IVP Q8HR ALYX Ondansetron HCl 4 mg 02/08/21 17:31 Ondansetron Hcl/Pf 4 Mg/2 Ml Sdv IVP Q6H PRN Nausea / Vomiting Sodium Chloride 1 syr 02/08/21 16:03 02/08/21 16:20 0.9% Sodium Chloride 10 Ml Disp.Syrin IVF 1 syr PRN PRN Administration To flush IV Discontinued Medications Generic Name Dose Route Start Last Admin Trade Name Freq PRN Reason Stop Dose Admin Cetirizine HCl 10 mg 02/08/21 16:10 02/08/21 16:19 Cetirizine Hcl 5 Mg/5 Ml Ud Cup PO 02/08/21 16:11 10 mg ONCE STA Administration Diphenhydramine HCl 50 mg 02/08/21 16:06 02/08/21 16:20 Diphenhydramine Inj 50 Mg/Ml Vial IVP 02/08/21 16:07 50 mg ONCE ONE Administration Enoxaparin Sodium 60 mg 02/08/21 17:31 02/08/21 17:50 Enoxaparin Sodium 60 Mg/0.6 Ml Syr SUBCUT 02/08/21 17:32 60 mg ONCE ONE Administration Ketorolac Tromethamine 30 mg 02/08/21 16:47 02/08/21 16:51 Ketorolac Tromethamine 30 Mg/Ml Vial IVP 02/08/21 16:48 30 mg ONCE STA Administration Methylprednisolone Sodium Succinate 125 mg 02/08/21 16:08 02/08/21 16:20 Methylprednisolone Sod Succ/Pf 125 Mg/2 Ml Vial IVP 02/08/21 16:09 125 mg ONCE STA Administration Laboratory Results - last 24 hr 02/08/21 02/08/21 02/08/21 16:20 16:20 16:20 WBC 8.67 RBC 4.66 Hgb 12.7 Hct 37.5 MCV 80.5 L MCH 27.3 MCHC 33.9 RDW Coeff of Toi 13.6 Plt Count 340 Immature Gran % (Auto) 0.3 Neut % (Auto) 72.0 Lymph % (Auto) 22.7 [place] % (Auto) 4.0 Eos % (Auto) 0.9 Baso % (Auto) 0.1 Neut # (Auto) 6.2 Lymph # (Auto) 2.0 [place] # (Auto) 0.4 Eos # (Auto) 0.1 Baso # (Auto) 0.0 Immature Gran # (Auto) 0.0 ESR PT INR APTT Sodium 136.6 Potassium 3.72 Chloride 101.2 Carbon Dioxide 27.5 Anion Gap 11.62 BUN 9.6 Creatinine 0.54 L Estimated GFR (MDRD) 135.00 BUN/Creatinine Ratio 17.77 Glucose 113.3 H Lactic Acid Calcium 8.94 Total Bilirubin 0.69 AST 83.1 H ALT 51.8 H Alkaline Phosphatase 87.9 Total Creatine Kinase 51.4 Total Protein 7.57 Albumin 4.31 Globulin 3.26 Albumin/Globulin Ratio 1.32 Procalcitonin Serum , Qual Negative D-Dimer Urine Color Urine Clarity Urine pH Ur Specific [place] Urine Protein Urine Glucose (UA) Urine Ketones Urine Blood Urine Nitrite Urine Bilirubin Urine Urobilinogen Ur Leukocyte Esterase Urine Microscopic RBC Urine Microscopic WBC Ur Squamous Epith Cells Ur Transition Epith Cell Urine Bacteria Adenovirus (PCR) B. pertussis DNA (PCR) B.parapertussis DNA PCR C. pneumoniae DNA (PCR) Coronavirus OC43 (PCR) Coronavirus HKU1 (PCR) Coronavirus 229E (PCR) Coronavirus NL63 (PCR) Human Metapneumovir PCR Influenza Type A (PCR) Influenza B (RT-PCR) M. pneumoniae (PCR) Parainfluenza 1 (PCR) Parainfluenza 2 (PCR) Parainfluenza 3 (PCR) Parainfluenza 4 (PCR) RSV (PCR) Entero/Rhino (PCR) SARS-CoV-2 (PCR) 02/08/21 02/08/21 02/08/21 16:20 16:20 16:20 WBC RBC Hgb Hct MCV MCH MCHC RDW Coeff of Toi Plt Count Immature Gran % (Auto) Neut % (Auto) Lymph % (Auto) [place] % (Auto) Eos % (Auto) Baso % (Auto) Neut # (Auto) Lymph # (Auto) [place] # (Auto) Eos # (Auto) Baso # (Auto) Immature Gran # (Auto) ESR PT 10.5 INR 0.99 APTT 28.6 Sodium Potassium Chloride Carbon Dioxide Anion Gap BUN Creatinine Estimated GFR (MDRD) BUN/Creatinine Ratio Glucose Lactic Acid Calcium Total Bilirubin AST ALT Alkaline Phosphatase Total Creatine Kinase Total Protein Albumin Globulin Albumin/Globulin Ratio Procalcitonin < 0.05 Serum , Qual D-Dimer 186.42 Urine Color Urine Clarity Urine pH Ur Specific [place] Urine Protein Urine Glucose (UA) Urine Ketones Urine Blood Urine Nitrite Urine Bilirubin Urine Urobilinogen Ur Leukocyte Esterase Urine Microscopic RBC Urine Microscopic WBC Ur Squamous Epith Cells Ur Transition Epith Cell Urine Bacteria Adenovirus (PCR) B. pertussis DNA (PCR) B.parapertussis DNA PCR C. pneumoniae DNA (PCR) Coronavirus OC43 (PCR) Coronavirus HKU1 (PCR) Coronavirus 229E (PCR) Coronavirus NL63 (PCR) Human Metapneumovir PCR Influenza Type A (PCR) Influenza B (RT-PCR) M. pneumoniae (PCR) Parainfluenza 1 (PCR) Parainfluenza 2 (PCR) Parainfluenza 3 (PCR) Parainfluenza 4 (PCR) RSV (PCR) Entero/Rhino (PCR) SARS-CoV-2 (PCR) 02/08/21 02/08/21 02/08/21 16:20 17:20 17:40 WBC RBC Hgb Hct MCV MCH MCHC RDW Coeff of Toi Plt Count Immature Gran % (Auto) Neut % (Auto) Lymph % (Auto) [place] % (Auto) Eos % (Auto) Baso % (Auto) Neut # (Auto) Lymph # (Auto) [place] # (Auto) Eos # (Auto) Baso # (Auto) Immature Gran # (Auto) ESR 13 PT INR APTT Sodium Potassium Chloride Carbon Dioxide Anion Gap BUN Creatinine Estimated GFR (MDRD) BUN/Creatinine Ratio Glucose Lactic Acid Calcium Total Bilirubin AST ALT Alkaline Phosphatase Total Creatine Kinase Total Protein Albumin Globulin Albumin/Globulin Ratio Procalcitonin Serum , Qual D-Dimer Urine Color Yellow Urine Clarity Slightly Urine pH 7.0 Ur Specific [place] 1.020 Urine Protein Negative Urine Glucose (UA) Negative Urine Ketones Negative Urine Blood Trace-intact H Urine Nitrite Negative Urine Bilirubin Negative Urine Urobilinogen 0.2 Ur Leukocyte Esterase Trace H Urine Microscopic RBC 5-10 Urine Microscopic WBC 5-10 Ur Squamous Epith Cells 10-20 Ur Transition Epith Cell 0-2 Urine Bacteria 1+ Adenovirus (PCR) Not detected B. pertussis DNA (PCR) Not detected B.parapertussis DNA PCR Not detected C. pneumoniae DNA (PCR) Not detected Coronavirus OC43 (PCR) Not detected Coronavirus HKU1 (PCR) Not detected Coronavirus 229E (PCR) Not detected Coronavirus NL63 (PCR) Not detected Human Metapneumovir PCR Not detected Influenza Type A (PCR) Not detected Influenza B (RT-PCR) Not detected M. pneumoniae (PCR) Not detected Parainfluenza 1 (PCR) Not detected Parainfluenza 2 (PCR) Not detected Parainfluenza 3 (PCR) Not detected Parainfluenza 4 (PCR) Not detected RSV (PCR) Not detected Entero/Rhino (PCR) Not detected SARS-CoV-2 (PCR) Not detected 02/08/21 18:17 WBC RBC Hgb Hct MCV MCH MCHC RDW Coeff of Toi Plt Count Immature Gran % (Auto) Neut % (Auto) Lymph % (Auto) [place] % (Auto) Eos % (Auto) Baso % (Auto) Neut # (Auto) Lymph # (Auto) [place] # (Auto) Eos # (Auto) Baso # (Auto) Immature Gran # (Auto) ESR PT INR APTT Sodium Potassium Chloride Carbon Dioxide Anion Gap BUN Creatinine Estimated GFR (MDRD) BUN/Creatinine Ratio Glucose Lactic Acid 1.24 Calcium Total Bilirubin AST ALT Alkaline Phosphatase Total Creatine Kinase Total Protein Albumin Globulin Albumin/Globulin Ratio Procalcitonin Serum , Qual D-Dimer Urine Color Urine Clarity Urine pH Ur Specific [place] Urine Protein Urine Glucose (UA) Urine Ketones Urine Blood Urine Nitrite Urine Bilirubin Urine Urobilinogen Ur Leukocyte Esterase Urine Microscopic RBC Urine Microscopic WBC Ur Squamous Epith Cells Ur Transition Epith Cell Urine Bacteria Adenovirus (PCR) B. pertussis DNA (PCR) B.parapertussis DNA PCR C. pneumoniae DNA (PCR) Coronavirus OC43 (PCR) Coronavirus HKU1 (PCR) Coronavirus 229E (PCR) Coronavirus NL63 (PCR) Human Metapneumovir PCR Influenza Type A (PCR) Influenza B (RT-PCR) M. pneumoniae (PCR) Parainfluenza 1 (PCR) Parainfluenza 2 (PCR) Parainfluenza 3 (PCR) Parainfluenza 4 (PCR) RSV (PCR) Entero/Rhino (PCR) SARS-CoV-2 (PCR) Assessment (1) Cellulitis: Status: Acute Code(s): L03.90 - Cellulitis, unspecified SNOMED Code(s): 418438255 (2) Brown recluse spider bite: Status: Acute Code(s): T63.331A - Toxic effect of venom of brown ehsanluse spider, accidental (unintentional), initial encounter SNOMED Code(s): 414912117 (3) Bipolar affective disorder: Status: None Code(s): F31.9 - Bipolar disorder, unspecified SNOMED Code(s): 61026193 (4) Transaminitis: Status: Acute Code(s): R74.01 - Elevation of levels of liver transaminase levels SNOMED Code(s): 384745960 (5) Abnormal urinalysis: Status: Acute Code(s): R82.90 - Unspecified abnormal findings in urine SNOMED Code(s): 801300752 Plan Plan: Cellulitis/Ersipelas/Possible Spider Bite: DDX today includes Interestingly she has lesion on the left tricep and something else in the left popliteal fossa. NO e/o bite in the fossa but it is erythematous, hot to touch and tender c/w skin infections. We will cover for staph/strep cellulitis/erysipelas, with MRSA>>common than spider bites. She has no recent travel either. We considered vascular process, vasculitis, DVT. The steroids should help with vasculitis/inflammatory process. I will check an ESR/CRP. Ddimer was negative suggesting less likely for DVT. She has not had any recent med changes, no increased doses etc. ESR has returned negative, lactic acid 1.24, procalc negativve. Cultures of blood have been ordered recommended. BIOFIRE NEGATIVE> - Admit observation - Antibiotics rocephin 1 gram daily, vanco 1 gram q 12. - Labs ordered and reviewed through ED. - I have ordered ANCA, - BC pending - CRP pending - Urine culture pending - Daily am CBC/CMP/PT/INR. - Lovenox 1mg/kg BID. - US LLE in am tomorrow. - Morphine sulfate 2gram IV q 6 hours PRN pain. - Tylenol 650 q 4-6 PRN pain and fever. - Vitals q 8 hr. Bipolar Disorder: Chronic established problem. Current Status STABLE on Seroquel. Will continue home medication while in hospital. We reviewed current therapy for this problem and we will continue this rx. - Continue home dose of seroquel Tachycardia: Pain response, steroid effect. We will continue to monitor. Transaminitis:Unknown etiology, will continue to monitor. - Repeat CMP in am. Abnormal Urine: Await urine culture. Diet: normal DVT Prophy: Using treatment dose 1mg/kg until US in the am. Disposition: Patient seen in ED room 1 w/ DR. Jacobs and lesions were measured personally. Patient has e/o cellulitis vs phlebitis vs vasculitis. US of the lower extremity in am. Will re-eval the lesions at that time. Total time today d/w ED, review ED notes, labs, orders, 70 minutes. This time did not include 10 minutes of documentation. If US is negative in am, swelling improving, may consider d/c tomorrow. At present no systemic findings. She has no e/o sepsis, does not meet sirs criteria.
[2021-02-08] MEDS ORDERED: LIDOCAINE HCL 1% SDV IM STA (18:37)
[2021-02-08 18:56] LABS: ERYTHROCYTE SEDIMENTATION RATE 13 mm/hr (0-20)
[2021-02-08] MEDS ORDERED: BUTALBITAL ACETAMINOPHEN CAFF PO PRN (19:56)
[2021-02-08] MEDS ORDERED: SEROQUEL PO SCH (20:00)
[2021-02-08] MEDS: MORPHINE 2 MG/ML SYRINGE IVP PRN (21:05)
[2021-02-08] MEDS: SOLU-MEDROL 125 MG IVP SCH (21:12)
[2021-02-09] MEDS: MORPHINE 2 MG/ML SYRINGE IVP PRN ×4 (02:52→21:54)
[2021-02-09] MEDS: SOLU-MEDROL 125 MG IVP SCH ×3 (05:30→21:54)
[2021-02-09 05:39] LABS: BASOPHILS % (AUTO) 0.1 % (0.0-3.0); HEMOGLOBIN 11.9 g/dl (12.0-16.0); IMMATURE GRANULOCYTE # (AUTO) 0.1 (0.0-1.0); IMMATURE GRANULOCYTE % (AUTO) 0.6 % (0.0-5.0); LYMPHOCYTES # (AUTO) 0.9 K/uL (0.60-3.4); LYMPHOCYTES % (AUTO) 10.5 (10.0-50.0); MEAN CORPUSCULAR HEMOGLOBIN 26.7 pg (27.0-31.0); MEAN CORPUSCULAR HGB CONC 33.1 (31.8-35.4); MEAN CORPUSCULAR VOLUME 80.7 fl (81.0-99.0); MONOCYTES # (AUTO) 0.1 K/uL (0.4-2.0); NEUTROPHILS # (AUTO) 7.3 K/ul (2.0-6.9); NEUTROPHILS % (AUTO) 87.8 % (42.2-75.2); PLATELET COUNT 326 10^3/uL (140-440); RDW COEFFICIENT OF VARIATION 13.5 % (11.6-14.8); RED BLOOD COUNT 4.46 10^6/ul (4.20-5.40); WHITE BLOOD COUNT 8.29 K/ul (4.6-10.2)
[2021-02-09 05:52] LABS: ALANINE AMINOTRANSFERASE 42.3 U/L (0-35); ALBUMIN 4.17 g/dL (3.5-5.0); ALKALINE PHOSPHATASE 80.2 U/L (38-126); ASPARTATE AMINO TRANSFERASE 51.2 U/L (14-36); BILIRUBIN,TOTAL 0.66 mg/dL (0.2-1.3); BLOOD UREA NITROGEN 11.4 mg/dL (7-17); CALCIUM 8.61 mg/dL (8.4-10.2); CARBON DIOXIDE 17.7 mmol/L (22-30.0); CREATININE 0.37 mg/dL (0.60-1.30); GLUCOSE 175.9 mg/dL (74-106); POTASSIUM 3.73 mmol/L (3.5-5.1); SODIUM 135.1 mmol/L (134.5-145); TOTAL PROTEIN 7.25 g/dL (6.3-8.2)
[2021-02-09] MEDS ORDERED: ROCEPHIN 1 GM VIAL IV SCH (06:00)
[2021-02-09] MEDS ORDERED: VANCOMYCIN 1 GM in SODIUM CHLORIDE 250 ML IV SCH (06:00)
[2021-02-09 06:01] LABS: PROTHROMBIN TIME 10.8 SEC (9.3-11.0)
--- NOTE | 2021-02-09 06:48 | PCM.PROG ---
Date Seen by Provider: 02/09/21 Time Seen by Provider: 06:38 Subjective: 25 yo female HD #2 admitted to observation status 02/08/21 with cellulitis vs phlebitis. She was started on vancomycin 1g q 12, ceftriaxone 1g q 24 hours, lovenox 60mg at 1mg/kg until US has completed. She had no markers of sepsis, UA was abnormal, cx pendinng. Transaminitis was present, monitoring and awaiting am labs. She had #2 large lesions left posterior leg, #1 lesion left posterior distal tricep. Vitals were stable other than mild tachy, she did not meet criteria for SIRS. Vitals reviewed overnight. Remains afebrile 97-98.5. Pulse rate 97-128. BP 103/67, 98/65, 128/83. RR 18-20. O2 97-99% on RA. They have recorded void x 1, no BM recorded. 0259 noted pain in the arm/leg stabbing burning rated at 6/10. Morphine 2mg IVP given to help with pain. Leg multiple spots of pain. Obs Narratives reviewed: 02/08 2100 decrease inn pain to 6/10. IV site inact c/d/i. Swelling redness warmth in leg/arm continue. 2200 no c/o, unchanged arm/leg. 2300 resting comfortably. 02/09 0000 resting. 0100 no s/sx of pain, resting. As above in RN note, c/o pain asked for something for pain. Morphine given. Redness and pain remain in affected regions. 0300 pain in left arm and leg. Morphine given 0252. 0400 pain remains 6/10, redness/warmth remain. No s/sx of distress per nusring. Resp easy unlabored. 0500 pain 6/10. abx this am, steroids given. 0600 pain 6/10. unchanged. labs this am CBC: WBC 8.29 hgb 11.99, plt 326, Neutrophils appropriately elevated at 87.8% likely demargination. ESR last night 13. Coag this am PT 10.8/1..02. Chemistry sodium 135.1, K+ 3.73, lcl 105, bun 11.4, cr 0.37. Glucose 175.9 (steroidal effect). AST 51.2 down from 83.1. ALT 42.3, down from 51.8. alk phos normal, ck 40.9 and normal. Albumin 4.17 and normal. Biofire 1720 02/08/21 negative. BC and UC pending. Vanco 1g q12 and rocephin 1g q 24 for today. Consider changing to linezolid and cefdinr at d/c. No abscess, nothing to culture. She has US of the leg today. We will continue pain meds. VSS and no need for increased fluids today unless not tolerating PO. Tetanus booster is up to date with of last child. REVIEW OF SYMPTOMS: (Positives bolded) General: weight loss, fever, chills, night sweats, fatigue, appetite loss HEENT: blurry vision, eye pain, eye discharge, dry eyes, decreased vision, sore throat tinnitus, bloody nose, hearin gloss, sinus pain/pressure, ear p ain/pressure. Respiratory: shortness of breath, cough, hemoptysis, wheezing, pleurisy, Cardiovascular: chest pain, PND, palpitation, edema, orthopnea, syncope, swelling of extremities Gastro: Nausea, vomiting, diarrhea, hematemesis, abdominal pain, constipation Genito: hematuria, dysuria, glycosuria, hesitancy, frequency, incontinence [place]: Arthralgia, myalgia, muscle weakness, joint swelling, NSAID use Skin: rash, pruritis, sores, nail changes, skin thickening, change in wart/mole, itching, new lesions, pruritus, nail changes Neuro: Migraine, numbness, ataxia, tremor, vertigo, weakness, memory loss, Irritability, dizziness Endocrine: excessive thirst, polyuria, cold intolerance, heat intolerance, goiter Psychiatric: depression, anxiety, anti-depressants, alcohol abuse, drug abuse, insomnia, change in sleep pattern and mood changes Heme/lymph: easy bruising, bleeding gums, blood clots, swollen glands, lymphedema, Allergic/immune: allergic rhinitis, hay fever, asthma, hives OBJECTIVE: Constitutional: Appearance- Pain response is present but better. Left arm is less tender, left popliteal fossa remains red/hot to touch. She is ambulating, pain is better. Pain controlled with morphine. No respiratory distress, she is consistent with stated age. Orientation- Oriented x 3, alert Posture- Normal Build and Nutrition-Well developed and well nourished. General- Patient is pleasant and cooperative with the interview and exam. She continues to be in pain in left tricep and along the left popliteal fossa. Left tricep is better. Left popliteal fossa remains unchanged. Integumentary: lesions posterior tricep 5mm, 5cm, 6cm tall. No longer Raised, less central duskiness and more confluent. Lesion Left medial thigh mid thigh 2cm central clearing with surrounding 5cm erythema. Pinker, less erythematous. Lesion Posterior popliteal Fossa remains unchanged in size: 22 cm long by 10 cm wide. Erythematous and more marroon colored now with less petechial region surrounding this. LN: none palpable in groin, axilla. Previous lesion sites reviewed. Still no e/o ticks, no lesions right leg, no lesions abdomen/back, within underwear/bra, no other lesions noted. Mild ?flushing post steroid seems resolved. Head/Neck: Head- normocephalic and atraumatic. Neck- without visible/palpable lumps or pulsations. Palpation- No bony tenderness about head/neck along frontal, occiptial, temporal, parietal, mastoid, jawline, zygoma, orbit or any other location. NO temporal artery tenderness. No TMJ tenderness. Normal cervi fatoumata ROM. Neck Supple. Thyroid-No thyromegaly, no nodules ENMT: Nares- bilateral quiet airflow, no discharge. Nasal mucosa- No bleeding noted and no ulcerations observed. Boomer, moist. Turbinates non boggy. Lips- normal color, moist without cracks/lesions Oral Cavity/Palate- hard/soft palate intact without lesions, oral mucosa pink and moist. Dentition assessed and discussed appropriate oral care. Tongue normal midline. Oropharynx- no pharyngeal erythema, Uvula midline. No post nasal drip. No exudate. Salivary glands- Non tender to palpation CHEST/LUNG: Inspection- symmetric chest wall no pectus deformity. Normal effort, no distress, no use of accessory muscles. Palpation- nontender sternum, ribline. No abnormal pulsations. Auscultation- Breath sounds normal throughout all lung alarcon. Normal tracheal sounds, Normal bronchial sounds overlying sternum, Bronchovessicular sounds normal between scapulae posteriorly, Normal vessicular breath sounds heard throughout periphery. Lungs are clear today. Adventitious sounds- No wheezes, rales, rhonchi. CARDIOVASCULAR: Carotid artery- normal, no bruits or abnormal pulsations. Jugular vein- no pulsations. Palpation/Percussion- Normal PMI, no palpable thrill Auscultation- Regular rate and rhythm. No murmur noted in sitting, supine positions. Extremities- no digital clubbing, cyanosis, edema, increased warmth. ABDOMEN: Inspection- normal and no visible pulsations. Normal contour. Auscultation- Bowel sounds normal, no abdominal bruits. Palpation/Percussion- soft, non-tender, no rebound tenderness, no rigidity (guarding), no jar tenderness, no masses. Liver-no hepatomegaly, Spleen no splenomegaly, Hernias- none. Rectal not examined. Peripheral Vascular: Upper extremity Left- Normal temperature with pink nailbeds and no ulcerations. Upper extremity Right- Normal temperature with pink nailbeds and no ulcerations. Lower extremity- Normal temperature with pink nailbeds and no ulcerations. DP pulses 2+ bilaterally. Pedal hair intact. Normal capillary refill. Edema- No edema. Musculoskeletal: Generalized-No generalized swelling or edema of extremities, no digital clubbing or cyanosis, neurovascularly intact all four extremities. Upper extremity- Symmetrical posture. No visible deformity. Normal sensation along medial and lateral upper extremity proximally and distally. NO tenderness overlying shoulder, lateral/medial epicondyle. Bath Tester 5/5 and strength 5/5 bilateral UE. Elbow palpated, no tenderness overlying olecranon. Normal supination, pronation to active/passive ROM and to resisted rotation. Bicep in sertion/tricep insertion appear normal without obvious pathology. Rotator cuff evaluated and intact. Normal wrist ROM bilaterally. Normal hand movement, intrinsic muscles of hands normal. No tenderness to palpation of hands/wrists/elbows. Lower extremity- tender to palpation calf and posterior hamstring on left, tu remains +, No swelling of calf, She has swelling of poplital fossa, left medial thigh. edema and erythema of surrounding tissue but not diffuse, normal strength and tone. Normal appearing hip ROM bilaterally without pain. Knee ROM reduced due to pain. No tenderness overlying trochanters, no tenderness about patella, quad tendon, patellar tendon. No tenderness at tibial tuberosity. Ankle normal ROM not tender to palpation along medial/lateral malleolus. Normal movement of toes, no tenderness bilateral feet/toes. Normal foot type. Calves symmetrical. Left is tender. Neurological: General- Moves all 4 extremities symmetrically. Symmetrical face and body posture. Neuropsych: Oriented- Person, place, time. (AAOx3), Mood/affect- normal and congruent. Able to articulate well. Speech-Normal speech, normal rate, normal tone, normal use of language, volume and coherence. Thought content- normal with ability to perform basic computations and apply abstract thought/reason. Associations- intact, no SI/HI, no hallucinations, delusions, obsessions. Judgment/insight- Appropriate. Memory-Recall intact, remote and recent memory intact. Knowledge- Age appropriate fund of knowledge, concentration and attention span normal. Lymphatic: Head/Neck- normal size and non tender to palpation. Axillary- Head and neck LN are normal size and non tender to palpation. Femoral and Inguinal- normal size and non tender to palpation. Objective: Vital Signs - 24 hr 02/08/21 17:15 02/08/21 18:00 02/08/21 18:18 Temperature 98.7 F 98 F 98.7 F Pulse Rate 118 H 103 H 118 H Respiratory Rate 20 20 20 Blood Pressure 121/82 104/72 121/82 O2 Sat by Pulse Oximetry 100 98 100 02/08/21 18:28 02/08/21 19:06 02/08/21 21:00 Temperature 98 F Pulse Rate 100 H 104 H Respiratory Rate 18 20 20 Blood Pressure O2 Sat by Pulse Oximetry 100 99 02/08/21 21:46 02/09/21 02:00 02/09/21 05:40 Temperature 98.5 F 98.1 F 97.7 F Pulse Rate 128 H 112 H 97 H Respiratory Rate 20 16 18 Blood Pressure 128/83 98/65 103/67 O2 Sat by Pulse Oximetry 99 98 97 02/09/21 10:00 02/09/21 14:00 02/09/21 15:35 Temperature 97.3 F L 98.2 F 97.9 F Pulse Rate 92 H 90 116 H Respiratory Rate 18 18 Blood Pressure 106/67 126/76 O2 Sat by Pulse Oximetry 96 98 Laboratory Results - last 24 hr 02/08/21 02/08/21 02/08/21 16:20 16:20 16:20 WBC RBC Hgb Hct MCV MCH MCHC RDW Coeff of Toi Plt Count Immature Gran % (Auto) Neut % (Auto) Lymph % (Auto) [place] % (Auto) Eos % (Auto) Baso % (Auto) Neut # (Auto) Lymph # (Auto) [place] # (Auto) Eos # (Auto) Baso # (Auto) Immature Gran # (Auto) ESR PT 10.5 INR 0.99 APTT 28.6 Sodium Potassium Chloride Carbon Dioxide Anion Gap BUN Creatinine Estimated GFR (MDRD) BUN/Creatinine Ratio Glucose Lactic Acid Calcium Total Bilirubin AST ALT Alkaline Phosphatase Total Creatine Kinase Total Protein Albumin Globulin Albumin/Globulin Ratio Procalcitonin < 0.05 D-Dimer 186.42 Urine Color Urine Clarity Urine pH Ur Specific [place] Urine Protein Urine Glucose (UA) Urine Ketones Urine Blood Urine Nitrite Urine Bilirubin Urine Urobilinogen Ur Leukocyte Esterase Urine Microscopic RBC Urine Microscopic WBC Ur Squamous Epith Cells Ur Transition Epith Cell Urine Bacteria Adenovirus (PCR) B. pertussis DNA (PCR) B.parapertussis DNA PCR C. pneumoniae DNA (PCR) Coronavirus OC43 (PCR) Coronavirus HKU1 (PCR) Coronavirus 229E (PCR) Coronavirus NL63 (PCR) Human Metapneumovir PCR Influenza Type A (PCR) Influenza B (RT-PCR) M. pneumoniae (PCR) Parainfluenza 1 (PCR) Parainfluenza 2 (PCR) Parainfluenza 3 (PCR) Parainfluenza 4 (PCR) RSV (PCR) Entero/Rhino (PCR) SARS-CoV-2 (PCR) 02/08/21 02/08/21 02/08/21 16:20 17:20 17:40 WBC RBC Hgb Hct MCV MCH MCHC RDW Coeff of Toi Plt Count Immature Gran % (Auto) Neut % (Auto) Lymph % (Auto) [place] % (Auto) Eos % (Auto) Baso % (Auto) Neut # (Auto) Lymph # (Auto) [place] # (Auto) Eos # (Auto) Baso # (Auto) Immature Gran # (Auto) ESR 13 PT INR APTT Sodium Potassium Chloride Carbon Dioxide Anion Gap BUN Creatinine Estimated GFR (MDRD) BUN/Creatinine Ratio Glucose Lactic Acid Calcium Total Bilirubin AST ALT Alkaline Phosphatase Total Creatine Kinase Total Protein Albumin Globulin Albumin/Globulin Ratio Procalcitonin D-Dimer Urine Color Yellow Urine Clarity Slightly Urine pH 7.0 Ur Specific [place] 1.020 Urine Protein Negative Urine Glucose (UA) Negative Urine Ketones Negative Urine Blood Trace-intact H Urine Nitrite Negative Urine Bilirubin Negative Urine Urobilinogen 0.2 Ur Leukocyte Esterase Trace H Urine Microscopic RBC 5-10 Urine Microscopic WBC 5-10 Ur Squamous Epith Cells 10-20 Ur Transition Epith Cell 0-2 Urine Bacteria 1+ Adenovirus (PCR) Not detected B. pertussis DNA (PCR) Not detected B.parapertussis DNA PCR Not detected C. pneumoniae DNA (PCR) Not detected Coronavirus OC43 (PCR) Not detected Coronavirus HKU1 (PCR) Not detected Coronavirus 229E (PCR) Not detected Coronavirus NL63 (PCR) Not detected Human Metapneumovir PCR Not detected Influenza Type A (PCR) Not detected Influenza B (RT-PCR) Not detected M. pneumoniae (PCR) Not detected Parainfluenza 1 (PCR) Not detected Parainfluenza 2 (PCR) Not detected Parainfluenza 3 (PCR) Not detected Parainfluenza 4 (PCR) Not detected RSV (PCR) Not detected Entero/Rhino (PCR) Not detected SARS-CoV-2 (PCR) Not detected 02/08/21 02/09/21 02/09/21 18:17 05:17 05:17 WBC 8.29 RBC 4.46 Hgb 11.9 L Hct 36.0 L MCV 80.7 L MCH 26.7 L MCHC 33.1 RDW Coeff of Toi 13.5 Plt Count 326 Immature Gran % (Auto) 0.6 Neut % (Auto) 87.8 H Lymph % (Auto) 10.5 [place] % (Auto) 1.0 Eos % (Auto) 0.0 Baso % (Auto) 0.1 Neut # (Auto) 7.3 H Lymph # (Auto) 0.9 [place] # (Auto) 0.1 L Eos # (Auto) 0.0 Baso # (Auto) 0.0 Immature Gran # (Auto) 0.1 ESR PT INR APTT Sodium Potassium Chloride Carbon Dioxide Anion Gap BUN Creatinine Estimated GFR (MDRD) BUN/Creatinine Ratio Glucose Lactic Acid 1.24 Calcium Total Bilirubin AST ALT Alkaline Phosphatase Total Creatine Kinase 40.9 Total Protein Albumin Globulin Albumin/Globulin Ratio Procalcitonin D-Dimer Urine Color Urine Clarity Urine pH Ur Specific [place] Urine Protein Urine Glucose (UA) Urine Ketones Urine Blood Urine Nitrite Urine Bilirubin Urine Urobilinogen Ur Leukocyte Esterase Urine Microscopic RBC Urine Microscopic WBC Ur Squamous Epith Cells Ur Transition Epith Cell Urine Bacteria Adenovirus (PCR) B. pertussis DNA (PCR) B.parapertussis DNA PCR C. pneumoniae DNA (PCR) Coronavirus OC43 (PCR) Coronavirus HKU1 (PCR) Coronavirus 229E (PCR) Coronavirus NL63 (PCR) Human Metapneumovir PCR Influenza Type A (PCR) Influenza B (RT-PCR) M. pneumoniae (PCR) Parainfluenza 1 (PCR) Parainfluenza 2 (PCR) Parainfluenza 3 (PCR) Parainfluenza 4 (PCR) RSV (PCR) Entero/Rhino (PCR) SARS-CoV-2 (PCR) 02/09/21 02/09/21 05:17 05:17 WBC RBC Hgb Hct MCV MCH MCHC RDW Coeff of Toi Plt Count Immature Gran % (Auto) Neut % (Auto) Lymph % (Auto) [place] % (Auto) Eos % (Auto) Baso % (Auto) Neut # (Auto) Lymph # (Auto) [place] # (Auto) Eos # (Auto) Baso # (Auto) Immature Gran # (Auto) ESR PT 10.8 INR 1.02 APTT Sodium 135.1 Potassium 3.73 Chloride 105.0 Carbon Dioxide 17.7 L D Anion Gap 16.13 BUN 11.4 Creatinine 0.37 L Estimated GFR (MDRD) 209.00 BUN/Creatinine Ratio 30.81 Glucose 175.9 H D Lactic Acid Calcium 8.61 Total Bilirubin 0.66 AST 51.2 H D ALT 42.3 H Alkaline Phosphatase 80.2 Total Creatine Kinase Total Protein 7.25 Albumin 4.17 Globulin 3.08 Albumin/Globulin Ratio 1.35 Procalcitonin D-Dimer Urine Color Urine Clarity Urine pH Ur Specific [place] Urine Protein Urine Glucose (UA) Urine Ketones Urine Blood Urine Nitrite Urine Bilirubin Urine Urobilinogen Ur Leukocyte Esterase Urine Microscopic RBC Urine Microscopic WBC Ur Squamous Epith Cells Ur Transition Epith Cell Urine Bacteria Adenovirus (PCR) B. pertussis DNA (PCR) B.parapertussis DNA PCR C. pneumoniae DNA (PCR) Coronavirus OC43 (PCR) Coronavirus HKU1 (PCR) Coronavirus 229E (PCR) Coronavirus NL63 (PCR) Human Metapneumovir PCR Influenza Type A (PCR) Influenza B (RT-PCR) M. pneumoniae (PCR) Parainfluenza 1 (PCR) Parainfluenza 2 (PCR) Parainfluenza 3 (PCR) Parainfluenza 4 (PCR) RSV (PCR) Entero/Rhino (PCR) SARS-CoV-2 (PCR) Venous doppler: NEGATIVE FOR DVT. Cultures: Negative urine (1) Cellulitis: Status: Acute Code(s): L03.90 - Cellulitis, unspecified SNOMED Code(s): 081707929 (2) Brown recluse spider bite: Status: Acute Code(s): T63.331A - Toxic effect of venom of brown recluse spider, accidental (unintentional), initial encounter SNOMED Code(s): 216424326 (3) Bipolar affective disorder: Status: None Code(s): F31.9 - Bipolar disorder, unspecified SNOMED Code(s): 57988794 (4) Transaminitis: Status: Acute Code(s): R74.01 - Elevation of levels of liver transaminase levels SNOMED Code(s): 867368572 (5) Abnormal urinalysis: Status: Acute Code(s): R82.90 - Unspecified abnormal findings in urine SNOMED Code(s): 997490497 Plan: Cellulitis/Ersipelas/Possible Spider Bite: HD 2. Abx day 2.Left arm is improving, left leg looks mostly unchanged. Will change to linezolid and rocephin and see how she does for another 24 hours. Pain is controlled with IV pain meds. We are using the rocephin. Consider d/c tomorrow if continues to improve through the night. Doppler negative, labs look okay. CBC mild drop in hgb and neutrophilia (appropriate with steroids). COAGS stable, CMP showed incr glucose from steroidal effect, AST/ALT better. Urine culture negative. She has no other complaints today, nothing new. Pain remains 4-6/10. u/s this am negative for clot. Still possible vasculitis, phlebitits, cellulitis. Treat with continued steroids, continued abx. - Admit observation to continue. - Antibiotics rocephin 1 gram daily, vanco 1 gram q 12 (2 doses) changed to linezolid starting evening 02/09/21 PO. - Labs ordered and reviewed - ANCA pending - BC pending - Urine culture Negative to date. - Daily am CBC/CMP/PT/INR. - Lovenox 1mg/kg BID to be changed to 40mg q day starting 02/10/21. This is for prophy dose. - Morphine sulfate 2gram IV q 6 hours PRN pain. - Tylenol 650 q 4-6 PRN pain and fever. - Vitals q 8 hr. Bipolar Disorder: Chronic established problem. Current Status STABLE on Seroquel. Will continue home medication while in hospital. We reviewed current therapy for this problem and we will continue this rx. - Continue home dose of seroquel Tachycardia: Pain response, steroid effect. We will continue to monitor. Transaminitis:Unknown etiology, better. [place] continue to monitor. - Repeat CMP in am. Abnormal Urine: Await urine culture. Diet: normal DVT Prophy: Lovenox 40mg subcutaneous daily starting 02/10/21. Disposition: Patient seen in room 105 today. Rounded on patient early this am then again around lunch time. Seen x 2 today. Patient has e/o cellulitis vs ph lebitis vs vasculitis. ANCA pending. US negative for DVT or phlebitis. Cellulitis is most likely etiology at this time with still possible vasculitis. Ddimer negative, US negative, low risk PE based on Wells criteria. CBC/CMP in am tomorrow, PT/INR in am tomorrow. Lovenox dosing adjusted. Vancod/c linezolid started. We will continue rocephin IV and morphine 2mg IV q 4 hours prn. If improved overnight d/c in am. Will re-eval the lesions in the am. Total time today d/w nursing, radiology team, case management 35 minutes face to face/rounding time. This time did not include 10 minutes of documentation. If swelling improving, may consider d/c tomorrow vs friday02/11/21. She still has no systemic findings. Occasional CHIU, improving overall. She has no e/o sepsis, does not meet sirs criteria. We will reassess in am tomorrow.
[2021-02-09] MEDS ORDERED: FIORICET PO PRN (07:06)
--- NOTE | 2021-02-09 07:58 | US ---
EXAM: Ultrasound venous Doppler left lower extermity HISTORY: Erythema, redness popliteal fossa COMPARISON: None TECHNIQUE: Venous duplex ultrasound of the left lower extremity was performed using color, carpenter-scal e, and Doppler flow imaging. FINDINGS: There is normal color flow and compression of the left common femoral, greater saphenous, profunda femoral, femoral, popliteal, peroneal, posterior tibial, and anterior tibial veins without e vidence of intraluminal thrombus. IMPRESSION: No left lower extremity deep venous thrombosis.
[2021-02-09] MEDS ORDERED: ROCEPHIN 1 GM/50 ML D5W 1 GM/50 ML BAG IV SCH (09:00)
[2021-02-09] MEDS: ZYVOX PO SCH ×2 (12:53→20:34)
[2021-02-09] MEDS ORDERED: SEROQUEL PO SCH (21:00)
[2021-02-10 05:24] LABS: BASOPHILS % (AUTO) 0.1 % (0.0-3.0); HEMATOCRIT 34.9 % (37.0-47.0); HEMOGLOBIN 11.6 g/dl (12.0-16.0); IMMATURE GRANULOCYTE # (AUTO) 0.1 (0.0-1.0); IMMATURE GRANULOCYTE % (AUTO) 0.6 % (0.0-5.0); LYMPHOCYTES % (AUTO) 7.6 (10.0-50.0); MEAN CORPUSCULAR HGB CONC 33.2 (31.8-35.4); MEAN CORPUSCULAR VOLUME 81.4 fl (81.0-99.0); MONOCYTES # (AUTO) 0.4 K/uL (0.4-2.0); MONOCYTES % (AUTO) 3.2 (0-10); NEUTROPHILS # (AUTO) 11.5 K/ul (2.0-6.9); NEUTROPHILS % (AUTO) 88.5 % (42.2-75.2); PLATELET COUNT 347 10^3/uL (140-440); RDW COEFFICIENT OF VARIATION 13.7 % (11.6-14.8); RED BLOOD COUNT 4.29 10^6/ul (4.20-5.40); WHITE BLOOD COUNT 13.02 K/ul (4.6-10.2)
[2021-02-10 05:35] LABS: PROTHROMBIN TIME 10.7 SEC (9.3-11.0)
[2021-02-10 05:39] LABS: ALANINE AMINOTRANSFERASE 36.2 U/L (0-35); ALBUMIN 3.86 g/dL (3.5-5.0); ALKALINE PHOSPHATASE 70.1 U/L (38-126); ASPARTATE AMINO TRANSFERASE 35.7 U/L (14-36); BILIRUBIN,TOTAL 0.59 mg/dL (0.2-1.3); BLOOD UREA NITROGEN 11.5 mg/dL (7-17); CALCIUM 8.43 mg/dL (8.4-10.2); CARBON DIOXIDE 23.9 mmol/L (22-30.0); CHLORIDE 104.7 mmol/L (98-107); CREATININE 0.34 mg/dL (0.60-1.30); GLUCOSE 160.2 mg/dL (74-106); POTASSIUM 3.93 mmol/L (3.5-5.1); SODIUM 135.1 mmol/L (134.5-145); TOTAL PROTEIN 6.77 g/dL (6.3-8.2)
[2021-02-10] MEDS: SOLU-MEDROL 125 MG IVP SCH (05:48)
[2021-02-10] MEDS ORDERED: LOVENOX SUBCUT ONE (06:00)
[2021-02-10 06:10] VITALS: BP 104/65; TEMP 97.7
[2021-02-10 06:14] LABS: C-REACTIVE PROTEIN 9 mg/L (0-10)
--- NOTE | 2021-02-10 08:03 | PCM.DC ---
Final Diagnosis: 1. Cellulitis Distal Tricep Left 2. Cellulitis Popliteal Fossa Left 3. Pain 4. Tranasminitis (resolved). (1) Cellulitis: Status: Acute Code(s): L03.90 - Cellulitis, unspecified SNOMED Code(s): 434761305 (2) Brown recluse spider bite: Status: Acute Code(s): T63.331A - Toxic effect of venom of brown recluse spider, accidental (uni ntentional), initial encounter SNOMED Code(s): 799734242 (3) Bipolar affective disorder: Status: None Code(s): F31.9 - Bipolar disorder, unspecified SNOMED Code(s): 33328878 (4) Transaminitis: Status: Acute Code(s): R74.01 - Elevation of levels of liver transaminase levels SNOMED Code(s): 613525021 (5) Abnormal urinalysis: Status: Acute Code(s): R82.90 - Unspecified abnormal findings in urine SNOMED Code(s): 846779974 Reason for Hospitalization: 1. Cellulitis, possible spider bite. - Considered DVT, considered vasculitis. -Pending ANCA panel - DVT w/u negative. Cellulitis considered. 2. Pain control. Prognosis at Discharge: Good. Improved. Condition at Discharge: Stable to improved. Pain 5/10. Erythema and swelling/pain are better. Medications at Discharge: Ambulatory Orders Medication Instructions Recorded quetiapine 50 mg tablet 100 mg PO QDAY #60 tab 01/05/21 frhzitpcfi-[id number]-ekzwwbyx 1 cap PO Q4-6H PRN #14 cap 02/07/21 50 mg-300 mg-40 mg capsule cefdinir 300 mg PO BID #14 cap 02/10/21 linezolid 600 mg PO BID 7 Days #14 tab 02/10/21 oxycodone-acetaminophen [Percocet] 1 tab PO TID PRN #21 tab 02/10/21 Lab/Diagnostics: Laboratory Last Values WBC 13.02 K/ul (4.6-10.2) H 02/10/21 04:45 RBC 4.29 10^6/ul (4.20-5.40) 02/10/21 04:45 Hgb 11.6 g/dl (12.0-16.0) L 02/10/21 04:45 Hct 34.9 % (37.0-47.0) L 02/10/21 04:45 MCV 81.4 fl (81.0-99.0) 02/10/21 04:45 MCH 27.0 pg (27.0-31.0) 02/10/21 04:45 MCHC 33.2 (31.8-35.4) 02/10/21 04:45 RDW Coeff of Toi 13.7 % (11.6-14.8) 02/10/21 04:45 Plt Count 347 10^3/uL (140-440) 02/10/21 04:45 Immature Gran % (Auto) 0.6 % (0.0-5.0) 02/10/21 04:45 Neut % (Auto) 88.5 % (42.2-75.2) H 02/10/21 04:45 Lymph % (Auto) 7.6 (10.0-50.0) L 02/10/21 04:45 [place] % (Auto) 3.2 (0-10) 02/10/21 04:45 Eos % (Auto) 0.0 % (0.0-7.0) 02/10/21 04:45 Baso % (Auto) 0.1 % (0.0-3.0) 02/10/21 04:45 Neut # (Auto) 11.5 K/ul (2.0-6.9) H 02/10/21 04:45 Lymph # (Auto) 1.0 K/uL (0.60-3.4) 02/10/21 04:45 [place] # (Auto) 0.4 K/uL (0.4-2.0) 02/10/21 04:45 Eos # (Auto) 0.0 K/ul (0.0-0.7) 02/10/21 04:45 Baso # (Auto) 0.0 K/uL (0-0.2) 02/10/21 04:45 Immature Gran # (Auto) 0.1 (0.0-1.0) 02/10/21 04:45 ESR 13 mm/hr (0-20) 02/08/21 16:20 PT 10.7 SEC (9.3-11.0) 02/10/21 04:45 INR 1.01 SI (0.0-3.9) 02/10/21 04:45 APTT 28.6 SEC (23.9-40.0) 02/08/21 16:20 Sodium 135.1 mmol/L (134.5-145) 02/10/21 04:45 Potassium 3.93 mmol/L (3.5-5.1) 02/10/21 04:45 Chloride 104.7 mmol/L (98-107) 02/10/21 04:45 Carbon Dioxide 23.9 mmol/L (22-30.0) 02/10/21 04:45 Anion Gap 10.43 02/10/21 04:45 BUN 11.5 mg/dL (7-17) 02/10/21 04:45 Creatinine 0.34 mg/dL (0.60-1.30) L 02/10/21 04:45 Estimated GFR (MDRD) 231.00 mL/min 02/10/21 04:45 BUN/Creatinine Ratio 33.82 02/10/21 04:45 Glucose 160.2 mg/dL (74-106) H 02/10/21 04:45 Lactic Acid 1.24 mmol/L (0.7-2.1) 02/08/21 18:17 Calcium 8.43 mg/dL (8.4-10.2) 02/10/21 04:45 Total Bilirubin 0.59 mg/dL (0.2-1.3) 02/10/21 04:45 AST 35.7 U/L (14-36) 02/10/21 04:45 ALT 36.2 U/L (0-35) H 02/10/21 04:45 Alkaline Phosphatase 70.1 U/L (38-126) 02/10/21 04:45 Total Creatine Kinase 40.9 U/L (30-135) 02/09/21 05:17 C-Reactive Prot, Quant 9 mg/L (0-10) 02/08/21 16:20 Total Protein 6.77 g/dL (6.3-8.2) 02/10/21 04:45 Albumin 3.86 g/dL (3.5-5.0) 02/10/21 04:45 Globulin 2.91 02/10/21 04:45 Albumin/Globulin Ratio 1.32 02/10/21 04:45 Procalcitonin < 0.05 ng/mL (0.09) 02/08/21 16:20 Serum , Qual Negative (NEGATIVE) 02/08/21 16:20 D-Dimer 186.42 ng/mL (<500) 02/08/21 16:20 Urine Color Yellow (YELLOW) 02/08/21 17:40 Urine Clarity Slightly (CLEAR) 02/08/21 17:40 Urine pH 7.0 (5-9) 02/08/21 17:40 Ur Specific [place] 1.020 (1.005-1.030) 02/08/21 17:40 Urine Protein Negative (NEGATIVE) 02/08/21 17:40 Urine Glucose (UA) Negative (NEGATIVE) 02/08/21 17:40 Urine Ketones Negative (NEGATIVE) 02/08/21 17:40 Urine Blood Trace-intact (NEGATIVE) H 02/08/21 17:40 Urine Nitrite Negative (NEGATIVE) 02/08/21 17:40 Urine Bilirubin Negative (NEGATIVE) 02/08/21 17:40 Urine Urobilinogen 0.2 (0.2) 02/08/21 17:40 Ur Leukocyte Esterase Trace (NEGATIVE) H 02/08/21 17:40 Urine Microscopic RBC 5-10 (0-2) 02/08/21 17:40 Urine Microscopic WBC 5-10 (0-2) 02/08/21 17:40 Ur Squamous Epith Cells 10-20 (0-5) 02/08/21 17:40 Ur Transition Epith Cell 0-2 (NOT PRESENT) 02/08/21 17:40 Urine Bacteria 1+ (NOT PRESENT) 02/08/21 17:40 Adenovirus (PCR) Not detected (NOT DETECT) 02/08/21 17:20 B. pertussis DNA (PCR) Not detected (NOT DETECT) 02/08/21 17:20 B.parapertussis DNA PCR Not detected (NOT DETECT) 02/08/21 17:20 C. pneumoniae DNA (PCR) Not detected (NOT DETECT) 02/08/21 17:20 Coronavirus OC43 (PCR) Not detected (NOT DETECT) 02/08/21 17:20 Coronavirus HKU1 (PCR) Not detected (NOT DETECT) 02/08/21 17:20 Coronavirus 229E (PCR) Not detected (NOT DETECT) 05/06/21 17:20 Coronavirus NL63 (PCR) Not detected (NOT DETECT) 02/08/21 17:20 Human Metapneumovir PCR Not detected (NOT DETECT) 02/08/21 17:20 Influenza Type A (PCR) Not detected (NOT DETECT) 02/08/21 17:20 Influenza B (RT-PCR) Not detected (NOT DETECT) 02/08/21 17:20 M. pneumoniae (PCR) Not detected (NOT DETECT) 02/08/21 17:20 Parainfluenza 1 (PCR) Not detected (NOT DETECT) 02/08/21 17:20 Parainfluenza 2 (PCR) Not detected (NOT DETECT) 02/08/21 17:20 Parainfluenza 3 (PCR) Not detected (NOT DETECT) 02/08/21 17:20 Parainfluenza 4 (PCR) Not detected (NOT DETECT) 02/08/21 17:20 RSV (PCR) Not detected (NOT DETECT) 02/08/21 17:20 Entero/Rhino (PCR) Not detected (NOT DETECT) 02/08/21 17:20 SARS-CoV-2 (PCR) Not detected (NOT DETECT) 02/08/21 17:20 Doppler US LE: Negative DVT. Blood culture: Negative 24 hours Urine Culture: Negative. Education Provided to Patient and Family: 1. Antibiotic education printed. 2. Opiate education to be provided 3. ORTHOTIC FITTER printed. 4. Cellulitis. Follow-ups: 1. DR. Marie in office 02/14/21 at 0830. Discharge Disposition: Home Hospital Course: 25 yo female now Obs Day 3 admitted with cellulitis along the popliteal fossa and posterior tricep on 02/08/21. She was started on vancomycin and rocephin due to perceived skin infection. W/U for DVT was undertaken. She had negative ddimer, negative US on 02/09/21. She improved from 02/08-02/09 and vanco was changed to PO linezolid yesterday with 24 hour IV Rocephin. She is interested in going home today. Pain rated at 5/10 today. Nursing obs notes reviewed. bipolar stable. CHIU chronically stable. She has 3 kids at home and is ready to go. Urine culture negative, BC negative 1 day. She has not worsened, in fact she has trended towards less erythema and pain. Labs this am WBC up to 13.02, hgb 11.6, plt 347. Neutrophilia with demargination. She has lymphocytopenia as well suggesting ? viral process. Biofire was negative. Chemistry this am sugar at 160.2 again likely steroidal effect. Transaminitis from previous essentially resolved with AST 35.7 and ALT 36.2. Sodium 135.1, K+. 3.93, cl 104.7, bun 11.5, Cr 0.34. Patient is improving on antibiotics. The only pending lab at this time is the ANCA panel to make sure that there is no component of vasculitis. To cover this, we will continue prednisone 40mg daily x 5 days. She was on therapeutic dose of lovenox day 1 into 2 and it was changed to prophylactic dose. She had normal diet, did well. Eating well, normal urine output. No other complaints at this time. Pain persists in popliteal fossa. Left posterior distal tricep resolving. We will send home with some pain medications. She is agreeable to d/c. Maximal therapeutic improvement from observational hospital stay. She was d/c home today. D/w Nursing, reviewed patient, rounded, reviewed labs/overnight obs notes. Discharge time today 33 minutes. Vital Signs - 24 hr 02/09/21 10:00 02/09/21 14:00 02/09/21 15:35 Temperature 97.3 F L 98.2 F 97.9 F Pulse Rate 92 H 90 116 H Respiratory Rate 18 18 Blood Pressure 106/67 126/76 O2 Sat by Pulse Oximetry 96 98 02/09/21 18:00 02/09/21 20:00 02/09/21 21:45 Temperature 98.4 F 98.1 F 97.3 F L Pulse Rate 106 H 115 H 106 H Respiratory Rate 18 18 18 Blood Pressure 114/70 111/71 102/65 O2 Sat by Pulse Oximetry 96 98 97 02/10/21 02:00 02/10/21 06:00 Temperature 97.0 F L 97.7 F Pulse Rate 90 97 H Respiratory Rate 18 18 Blood Pressure 105/63 104/65 O2 Sat by Pulse Oximetry 96 98 Constitutional: No respiratory distress, she is consistent with stated age. Orientation- Oriented x 3, alert Posture-Not doubled over. Lying supine, answering questions appropriately. Posture- Normal Build and Nutrition-Well developed and well nourished. General- Patient is pleasant and cooperative with the interview and exam. pain in left tricep resolved, and along the left popliteal fossa ~50% improved. Integumentary: lesions posterior tricep 5mm, 5cm, 6cm tall. Raised central duskiness. Lesion Left medial thigh mid thigh 2cm central clearing with surrounding 5cm erythema. Lesion Posterior popliteal Fossa: 22 cm long by 10 cm wide. Erythematous with petechial region surrounding this. LN: none palpable in groin, axilla. Full skin evaluation completed, I did not find/appreciate ticks, no lesions right leg, no lesions abdomen/back, within underwear/bra, no other lesions noted. Mild ?flushing post steroid and sweat along upper lip she noted she felt hot. CHEST/LUNG: Inspection- symmetric chest wall no pectus deformity. Normal effort, no distress, no use of accessory muscles. Palpation- nontender sternum, ribline. No abnormal pulsations. Auscultation- Breath sounds normal throughout all lung alarcon. Normal tracheal sounds, Normal bronchial sounds overlying sternum, Bronchovessicular sounds normal between scapulae posteriorly, Normal vessicular breath sounds heard throughout periphery. Lungs are clear today. Adventitious sounds- No wheezes, rales, rhonchi. CARDIOVASCULAR: Carotid artery- normal, no bruits or abnormal pulsations. Jugular vein- no pulsations. Palpation/Percussion- Normal PMI, no palpable thrill Auscultation- Regular rate and rhythm. No murmur noted in sitting, supine positions. Extremities- no digital clubbing, cyanosis, edema, increased warmth. ABDOMEN: Inspection- normal and no visible pulsations. Normal contour. Auscultation- Bowel sounds normal, no abdominal bruits. Palpation/Percussion- soft, non-tender, no rebound tenderness, no rigidity (guarding), no jar tenderness, no masses. Liver-no hepatomegaly, Spleen no splenomegaly, Hernias- none. Rectal not examined. Peripheral Vascular: Upper extremity Left- Normal temperature with pink nailbeds and no ulcerations. Upper extremity Right- Normal temperature with pink nailbeds and no ulcerations. Lower extremity- Normal temperature with pink nailbeds and no ulcerations. DP pulses 2+ bilaterally. Pedal hair intact. Normal capillary refill. Edema- No edema. Musculoskeletal: Generalized-No generalized swelling or edema of extremities, no digital clubbing or cyanosis, neurovascularly intact all four extremities. Upper extremity- Symmetrical posture. No visible deformity. Normal sensation along medial and lateral upper extremity proximally and distally. NO tenderness overlying shoulder, lateral/medial epicondyle. 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 Elbow palpated, no tenderness overlying olecranon. Normal supination, pronation to active/passive ROM and to resisted rotation. Bicep insertion/tricep insertion appear normal without obvious pathology. Rotator cuff evaluated and intact. Normal wrist ROM bilaterally. Normal hand movement, intrinsic muscles of hands normal. No tenderness to palpation of hands/wrists/elbows. Lower extremity- tender to palpation calf and posterior hamstring on left, tu remains +, No swelling of calf, She has swelling of poplital fossa, left medial thigh. edema and erythema of surrounding tissue but not diffuse, normal strength and tone. Normal appearing hip ROM bilaterally without pain. Knee ROM reduced due to pain. No tenderness overlying trochanters, no tenderness about patella, quad tendon, patellar tendon. No tenderness at tibial tuberosity. Ankle normal ROM not tender to palpation along medial/lateral malleolus. Normal movement of toes, no tenderness bilateral feet/toes. Normal foot type. Calves symmetrical. Left is tender. Neurological: General- Moves all 4 extremities symmetrically. Symmetrical face and body posture. Neuropsych: Oriented- Person, place, time. (AAOx3), Mood/affect- normal and congruent. Able to articulate well. Speech-Normal speech, normal rate, normal tone, normal use of language, volume and coherence. Thought content- normal with ability to perform basic computations and apply abstract thought/reason. Associations- intact, no SI/HI, no hallucinations, delusions, obsessions. Judgment/insight- Appropriate. Memory-Recall intact, remote and recent memory intact. Knowledge- Age appropriate fund of knowledge, concentration and attention span normal. Lymphatic: Head/Neck- normal size and non tender to palpation. Axillary- Head and neck LN are normal size and non tender to palpation. Femoral and Inguinal- normal size and non tender to palpation. Plan: 1. D/C Home. 2. Linezolid 600mg PO BID. x 7 D Rx sent electronically. 3. Cefdinir 300mg PO BID x 7 D Rx sent electronically 4. Percocet 5 1 po TID x 7 D Rx sent electronically. 5. Prednisone 20mg #2 PO daily x 5 days Rx sent electronically. 6. If worsening, if spreading, if changing please call or return to ED. 7. If signs or symptoms of allergic reaction please stop the medications, call for further instructions. 32 minutes spent rounding with patient today.
[2021-02-10] MEDS ORDERED: LOVENOX SUBCUT SCH (09:00)
[2021-02-12 15:20] LABS: ANTIMYELOPEROXIDASE ABS < 9.0 U/mL (0.0-9.0); ANTIPROTEINASE 3 ABS < 3.5 U/mL (0.0-3.5)
--- OUTSIDE RECORDS SUMMARY | 2021-03-04 13:06 | XMS REPORT ---
:1995 Author Organization [facility] Address [facility] [place] [address] Care Team Providers Name Role Phone Romie Marie MD Primary Care Provider Reason for Visit Auth/Cert Status Reason Specialty Diagnoses / Procedures Referred By C ontact Referred To Contact Diagnoses Sterilization Sterilization [Z30.2] Procedures IN LAP,TUBAL CAUTERY LAPAROSCOPIC BILATERAL TUBAL LIGATION Encounter Details Date Type Department Care Team Description 03/02/2021 Hospital Encounter [facility] Jonel Nation, S/P tubal ligation (Primary Dx); [facility], Sterilization [address] [facility] [place] [address] [place] [address] Allergies Active Allergy Reactions Severity Noted Date Comments Promethazine Hcl Anaphylaxis High 11/06/2016 Ziprasidone Hcl Shortness of breath High 11/06/2016 Zolmitriptan Shortness of breath High 11/06/2016 documented as of this encounter (statuses as of 03/02/2021) Medications Medication Sig Dispensed Refills Start Date End Date Status QUEtiapine Take 50 mg by 0 Activ e (SEROquel) 25 mg mouth nightly tablet ibuprofen Take 1 tablet 30 tablet 0 03/02/2021 Activ e (MOTRIN) 600 mg (600 mg total) tablet by mouth every 6 (six) hours as needed for moderate pain HYDROcodone-acet Take 1 tablet 7 tablet 0 03/02/2021 Active aminophen by mouth every (NORCO) 5-325 mg 6 (six) hours per as needed for tabletIndication moderate pain s: S/P tubal ligation Sprintec, 28, Take 1 tablet 0 01/24/2021 D iscontinued 0.25-35 mg-mcg by mouth daily 1 (Stop Taking at per tablet Discharge ) documented as of this encounter (statuses as of 03/02/2021) Active Problems Problem Noted Date Term , repeat 11/28/2019 documented as of this encounter (statuses as of 03/02/2021) Resolved Problems Problem Noted Date Resolved Date Right lower quadrant pain 11/15/2019 11/15/2019 uterine contractions 11/14/2019 11/15/2019 documented as of this encounter (statuses as of 03/02/2021) Immunizations Name Administration Dates Next Due Influenza (IM) Quad PF 6mo + 11/30/2019 Tdap 11/30/2019 documented as of this encounter Social History Tobacco Use Types Packs/Day Years Used Date Never Smoker Smokeless Tobacco: Never Used Alcohol Use Drinks/Week oz/Week Comments Not Currently Sex Assigned at Date Recorded Not on file Job Start Date Occupation Industry Not on file Not on file Not on file COVID-19 Exposure Response Date Recorded In the last month, have you been in contact with No / Unsure 01/19/2021 10:56 PM CDT someone who was confirmed or suspected to have Coronavirus / COVID-19? documented as of this encounter Last Filed Vital Signs Vital Sign Reading Time Taken Comments Blood Pressure 121/80 03/02/2021 2:45 PM CDT Pulse 93 03/02/2021 1:30 PM CDT Temperature 36.7 C (98 F) 03/02/2021 1:33 PM CDT Respiratory Rate 14 03/02/2021 1:33 PM CDT Oxygen Saturation 99% 03/02/2021 2:45 PM CDT Inhaled Oxygen Concentration - - Weight 59 kg (130 lb 1.1 oz) 03/02/2021 10:07 AM CDT Height 154.9 cm (5' 1") 03/02/2021 10:07 AM CDT Body Mass Index 24.58 03/02/2021 10:07 AM CDT documented in this encounter Discharge Summaries Not on filedocumented in this encounter Discharge Instructions Lissa Adam RN BSN - 03/02/2021 [facility] LAPAROSCOPY What can I expect when I go home? You can expect to have some soreness around the incision for 1-2 days. (It may ooze a little for the first day. If this continues or if the incisions turn red, hard, or hot, it may be infected. Callthe office if this happens.) You may have some shoulder pain for the first 2 days and some gas pain in the first week. You may have some vaginal spotting and/or cramping for 2-3 days. You will continue to have your usual menstrual period. When I go home, what can I do? You can do all your normal activities that do not require a great deal of physical exercise. Avoid stretching, pulling or heavy lifting for at least 2 weeks. You may return to work after 2 days if your job does not require you to be on your feet a lot or do a lot of physical activity. If your job requires you to do these things, plan to be off for one to two weeks, depending on how strenuous your job is. Remove your dressing in 24 hours, do not worry about getting the stitches out, they dissolve. What should I not do? Do not allow your incision to get wet for 2 days. No sexual relations or tampons until after your postop visit. When should I see my doctor? Call and make an appointment to see your doctor in 2 weeks if you don't already have one. Notify your doctor if you have any of the following: Vaginal bleeding that is heavier than a menstrual period. Vaginal discharge that has a foul odor. Temperature of 100.5F or higher. Unusual pain, redness, swelling or drainage from then incision. AttachmentsThe following attachments cannot be sent through Care Everywhere. Laparoscopic Tubal Ligation Care After ([place])General Anesthesia Adult Care After ([place])documented in this encounter Medications at Time of Discharge Medication Sig Dispensed Refills Start Date End Date QUEtiapine (SEROquel) 25 Take 50 mg by mouth 0 mg tablet nightly HYDROcodone-acetaminophen Take 1 tablet by mouth 7 tablet 0 03/02/2021 (NORCO) 5-325 mg per every 6 (six) hours as tabletIndications: S/P needed for moderate tubal ligation pain ibuprofen (MOTRIN) 600 mg Take 1 tablet (600 mg 30 tablet 0 03/02/2021 tablet total) by mouth every 6 (six) hours as needed for moderate pain documented as of this encounter H&P Notes Roxanne Boyd MD - 03/02/2021 12:04 PM CDT H&P reviewed. The patient was examined and there are no changes to the H&P. documented in this encounter Miscellaneous Notes Perioperative Nursing Note - Lissa Rodríguez RN BSN - 03/02/2021 3:20 PM CDT Patient tolerating liquids with moderate pain. Vital signs stable. Patient ambulated to the bathroomand voided without difficulty. No nausea and vomiting. Vaginal bleeding is appropriate for procedure. Discharge instructions given to patient and family Patient and family verbalized understanding. Written pain prescription given to patient. Patient instructed to wait 6 hours before taking another pain medications since she got one prior to discharge. Patient verbalized understanding. rief Op Note - Roxanne Boyd MD - 03/02/2021 12:31 PM CDT LAPAROSCOPIC BILATERAL TUBAL LIGATION (B) Procedure Note Procedure: LAPAROSCOPIC BILATERAL TUBAL LIGATION CPT(R) Code: 97055 - IN LAP,TUBAL CAUTERY Findings: nl tubes, ovaries, uterus Pre-op Diagnosis * Sterilization [Z30.2] Post-op Diagnosis * Sterilization [Z30.2] Surgeon(s): Roxanne Nation MD Anesthesia: General Staff: Press Department Manager: Yasmine Pierson RN Scrub Person: Shonda Bill MD BOW MACHINE OPERATOR: Cynthia Alvarez CRNA Procedure Details Procedure(s): LAPAROSCOPIC BILATERAL TUBAL LIGATION - Wound Class: Clean Contaminated Estimated Blood Loss: 5 mL Specimens: * No specimens in log * Drains: [REMOVED] Urethral Catheter 16 Fr. (Removed) Implants: Implant Name Type Inv. Item Serial No. Metal Grinder Lot No. [id number] No. Used Action BAND FALOPE-RING 30 PROCEDURE - SNA - [id number] Intensive Care Anaesthetist BAND FALOPE-RING 30 PROCEDURE NA OLYMPUS [id number] Implanted BAND FALOPE-RING 30 PROCEDURE - SNA - [id number] Intensive Care Anaesthetist BAND FALOPE-RING 30 PROCEDURE NA OLYMPUS [id number] Implanted Complications: None; patient tolerated the procedure well. Postop/Post Procedure Patient Status: PACU - hemodynamically stable. Condition: stable Attending Attestation: I was present and scrubbed for the entire procedure. Roxanne Nation MD documented in this encounter Plan of Treatment Scheduled Orders Name Type Priority Associated Order Schedule Diagnoses Oxygen Therapy - Respiratory Care Routine As need ed until Nasal Cannula discontinued s tarting 03/02/2021 Oxygen Therapy - Respiratory Care Routine Continu ous until Nasal Cannula discontinued s tarting 03/02/2021 Incentive Respiratory Care Routine Every 4 laura rs while spirometry awake until discontinued st arting 03/02/2021 documented as of this encounter Implants Implanted Type Area Metal Grinder Device Identifier Shelf Model / Expiration Date Seri al / Lot Band Falope-Ring 30 Procedure - Sna - [id number] Intensive Care Anaesthetist Abdome n [facility] [id number] 01/11/2022 FRB-30 / Implanted: Qty: 1 on 03/02/2021 by Roxanne Boyd MD at [facility] / [id number] Band Falope-Ring 30 Procedure - Sna - [id number] Intensive Care Anaesthetist Abdome n [facility] [id number] 01/11/2022 FRB-30 / Implanted: Qty: 1 on 03/02/2021 by Roxanne Boyd MD at [facility] / [id number] documented as of this encounter Procedures Procedure Name Priority Date/Time Associated Diagnosis Comme nts YONI WAVEFORM Routine 03/02/2021 1:02 Results for this PM CDT procedure are i n the results section. POC , STAT 03/02/2021 9:54 Sterilization Results for this URINE AM CDT procedure are i n the results section. documented in this encounter Results YONI WAVEFORM (03/02/2021 1:02 PM CDT) Pathologist Sig mich [facility] IP WAVEFORM NOTE send [facility] IP YONI Specimen Performing Organization Address City/State/ZIP Code Phon e Number [facility] IP YONI POC , urine (03/02/2021 9:54 AM CDT) Pathologist Sig mich Test, Urine, POCT Negative Specimen Urine documented in this encounter Visit Diagnoses Diagnosis S/P tubal ligation - Primary Tubal ligation status Sterilization documented in this encounter Administered Medications Inactive Administered Medications - up to 3 most recent administrations Medication Order MAR Action Action Date Dose Rate Site acetaminophen (TYLENOL) tablet 1,000 mg 1,000 mg, oral, Every 6 hours scheduled, First dose on Fri03/02/21 at 1915, Do not exceed 4,000mg of acetaminophen per day for adults or 75 mg/kg/day for children weighing <50kg from all sources., chlorhexidine (PERIDEX) 0.12 % solution 15 mL Given 03/02/2021 10:15 AM CDT 15 mL 15 mL, Mouth/Throat, Once, Fri03/02/21 at 1015, For 1 dose, Pre-op, swish and spit; do not swallow., famotidine (PEPCID) tablet 20 mg Given 03/02/2021 10:15 AM CDT 20 mg 20 mg, oral, Once, Fri03/02/21 at 1015, For 1 dose, Pre-op, call or contact centre coach to OR, HYDROcodone-acetaminophen (NORCO) 5-325 mg Given 03/02 2:38 PM CDT 1 tablet per tablet 1 tablet 1 tablet, oral, Once, Fri03/02/21 at 1500, For 1 dose, Do not exceed 4,000mg of acetaminophen per day for adults or 75 mg/kg/day for children weighing <50kg from all sources., ibuprofen (MOTRIN) tablet 800 mg 800 mg, oral, Every 8 hours scheduled, First dose on S at 03/03/21 at 1315 ketorolac (TORADOL) injection 30 mg 30 mg, intravenous, Every 6 hours, First dose on Fri03/02/21 at 1400, For 3 doses lactated ringer's (LR) infusion New Bag 03/02/2021 1:29 PM CDT 125 mL/hr 125 mL/hr 125 mL/hr, intravenous, at 125 mL/hr, Continuous, Starting Fri03/02/21 at 1015, Pre-op Continued from OR 03/02/2021 1:00 PM CDT 125 mL/hr 125 mL/hr Restarted 03/02/2021 12:45 PM CDT lactated ringer's (LR) infusion 100 mL/hr, intravenous, at 100 mL/hr, Co ntinuous, Starting Fri03/02/21 at 1400, May titrate as tolerates po fluids, ondansetron (ZOFRAN) injection 4 mg 4 mg, intravenous, Every 6 hours PRN, na usea/vomiting 1st line unable to take PO, Starting Fri03/02/21 at 1343 ondansetron ODT (ZOFRAN-ODT) disintegrat ing tablet 4 mg 4 mg, oral, Every 6 hours PRN, nausea/vo miting 1st line, Starting Fri03/02/21 at 1343, Using dry hands, place tablet on tongue and allo w to dissolve., oxyCODONE (ROXICODONE) immediate release tablet 5 mg 5 mg, oral, Every 6 hours PRN, severe pa in 1st line, Starting Fri03/02/21 at 1343 sodium citrate-citric acid (BICITRA) solution Given 10:15 AM CDT 30 mL 30 mL 30 mL, oral, Once, Fri03/02/21 at 1015, For 1 dose, Pre-op, call or contact centre coach to OR, documented in this encounter Insurance Payer Benefit Plan / Subscriber ID Effective Dates Phone Addre ss Type Group MEDICA[place] [employer]ET[employer] [id number] Effective for all Medicaid [facility] [employer] documented as of this encounter Advance Directives For more information, please contact: [phone] Documents on File Type Date Recorded Patient Palliative Senior Np Explanati on Advance Directives and Living Will Legal Guardianship Latest Code Status on File Code Status Date Activated Date Inactivated Comments Full Code 03/02/2021 9:54 AM Full Code 11/28/2019 7:58 AM 11/28/2019 6:51 PM Full Code 11/14/2019 9:51 PM 11/15/2019 2:37 PM Full Code 09/25/2019 4:59 PM 09/25/2019 10:37 PM
== END 2021-02-10 09:14 | disposition home or self-care (01) ==
LOC: MEDSURG A 15:41 → ED 15:41 → MEDSURG A 20:11
PROVIDERS: ADMIT Family Medicine; ATTEND Family Medicine
DX: R82.90 Unspecified abnormal findings in urine; F31.9 Bipolar disorder, unspecified; T63.331A Toxic effect of venom of brown recluse spider, accidental (unintentional), initial encounter; Z20.822 Contact with and (suspected) exposure to COVID-19; R53.83 Other fatigue; R74.01 Elevation of levels of liver transaminase levels